=== PATIENT | female | born 1980 | race Caucasian/White ===

== ENCOUNTER 2016-11-15 18:06 | Emergency (ER) | payer MEDICAID ==
[~2016-11-15 18:06] MED LIST: ?BP MED; ACHYD1T PO; ALBU0.632 IH; ALBU8.5H2 IH; AMLO5TAB4 PO; AZIT-21 PO; BENZ100C18 PO; BUTA1TAB46 PO; CEPH-38 PO; CIPR-225 PO; DCS100C PO; FERR240T9 PO; HYDR-3729 PO; HYDR-707 PO; HYDR1TAB PO; INHALER; Ibuprofen PO; LEVO500T69 PO; NITR100C3 PO; ONDA-42 SL; PEDI1TAB35 PO; PRED10TA PO; PREN1COM11 PO; SERT50TA2 PO; SRTR100T PO; TRM50T PO
--- OUTSIDE RECORDS SUMMARY | 2016-11-15 18:12 | XMS REPORT | Continuity of Care Document ---
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 05/06/14 9:38pm Organ Donor Yes 05/06/14 9:38pm Resuscitation Status Full Code 05/06/14 9:38pm Resuscitation Status Full Code 05/06/14 9:58pm Problems Medical Problems Problem Onset Date Status DEMISE PER ULTRASOUND REPORT Unknown Active Nausea Unknown Active Medications Medication Dose Route Sig Days/Qty Instructions Order Date Discontinued Date Status Sertraline HCl 200 Mg PO DAILY 06/26/11 06/19/13 Discontinued [Inhaler] NEEDED 11/29/12 11/29/12 Discontinued [?Bp Med] DAILY 01/03/13 06/19/13 Discontinued Acetaminophen/Hydrocodone Bitart 1 - 2 Each PO Q 4 - 6 HR PRN 20 Qty 06/19/13 Discontinued Levofloxacin 1 Each PO DAILY 10 Qty FOR INFECTION 06/19/13 12/03/13 Discontinued Tramadol HCl 50 Mg PO Q4-6HOURS PRN 20 Qty 06/19/13 12/03/13 Discontinued Cmb#95/Iron/Fa/Dha 1 Each PO DAILY 12/03/13 05/07/14 Discontinued Albuterol 1 Puff IH EVERY 4HRS 1 PUFFS 12/03/13 Active Ondansetron Hcl 4 Mg SL EVERY 4HRS 5 Qty 12/03/13 05/07/14 Discontinued Pediatric Multivit Comb. No.49 1 Each PO DAILY 05/07/14 Active Ferrous Gluconate 1 Tab PO DAILY 05/07/14 Active Nitrofurantoin Macrocrystals 1 Tab PO TWICE A DAY 7 Days Clcr <60 mL/ minute: Contraindicated 05/07/14 Active Social History Social History Problem Response Recorded Date/Time Alcohol Use Occasionally Uses 05/07/2014 2:37am Recreational Drug Use N DENIES 05/07/2014 2:37am Recent Foreign Travel No 05/07/2014 2:37am Recent Infectious Disease Exposure No 05/07/2014 2:37am Hospitalization with Isolation Denies 05/07/2014 10:12am Sexually Transmitted Disease No 05/07/2014 2:37am HIV/AIDS No 05/07/2014 2:37am Smoking Status Current Everyday Smoker 05/06/2014 9:37pm Do you dip or chew tobacco? No 05/06/2014 9:37pm Query Response Start Date Stop Date Smoking Status Current Everyday Smoker Hospital Discharge Instructions No hospital discharge instructions. Plan of Care Discharge Date 05/07/14 9:30am Disposition 30 STILL A PATIENT Instructions/Education Provided OB OUTPATIENT DISCHARGE Forms Provided Follow-Up Appts. [facility]/OP Prescriptions See Medications Section Functional Status No functional status results. Allergies, Adverse Reactions, Alerts Allergen Type Severity Reaction Status Last Updated Procaine HCl Allergy Active 06/26/11 Penicillins ([id number]) Allergy Active 06/26/11 Codeine Allergy Active 06/26/11 Immunizations Name Given Type Date of Influenza Vaccine 07/18/13 Historical Hepatitis A No Historical Hepatitis B No Historical Tetanus Booster (TDap) Unknown Historical Vital Signs Acute Vital Signs Vital Response Date/Time Temperature (Fahrenheit) 96.7 degrees F (97.6 - 99.5) Temperature (Calculated Celsius) 35.13764 degrees C (36.4 - 37.5) Temperature Source Tympanic Pulse Rate (adult) 94 bpm (60 - 90) Respiratory Rate 18 bpm (12 - 24) Blood Pressure 103/62 mm Hg Pain Pain Intensity 5 Height (Feet) 5 feet Height (Inches) 1.00 inches Height (Calculated Centimeters) 154.651332 cm Weight (Pounds) 175 pounds Weight (Calculated Grams) 17110.666 gm Weight (Calculated Kilograms) 79.103327 kilograms Calculated BMI 33.06 Results Test Source Date Result Interp. Ref. Range Comments Alanine Aminotransferase (ALT/SGPT) December 03, 2013 9:00pm 30 U/L N 30- 65 Albumin December 03, 2013 9:00pm 3.3 G/DL L 3.4-5.0 Alkaline Phosphatase December 03, 2013 9:00pm 73 U/L N 50-136 Amylase Level June 19, 2013 8:39pm 35 U/L N 25-115 Anisocytosis December 03, 2013 9:00pm SLIGHT - Aspartate Amino Transf (AST/SGOT) December 03, 2013 9:00pm 9 U/L L 15-37 BUN/Creatinine Ratio December 03, 2013 9:00pm 16 - Band Neutrophils December 03, 2013 9:00pm 1 % - Basophils # (Auto) December 03, 2013 9:00pm 0.0 10^3/uL N 0.0-0.1 Basophils % (Manual) December 03, 2013 9:00pm 0 % - Basophils (%) (Auto) December 03, 2013 9:00pm 0 % N 0-10 Blood Urea Nitrogen December 03, 2013 9:00pm 13 MG/DL N 7-18 C-Reactive Protein November 29, 2012 12:52am < 0.2 MG/DL L 0.2-0.9 Calcium Level December 03, 2013 9:00pm 9.2 MG/DL N 8.5-10.1 Carbon Dioxide Level December 03, 2013 9:00pm 26 MMOL/L N 21-32 Chloride Level December 03, 2013 9:00pm 103 MMOL/L N 101-110 Creatinine December 03, 2013 9:00pm 0.8 MG/DL N 0.6-1.3 Eosinophils # (Auto) December 03, 2013 9:00pm 0.5 10^3/uL H 0.0-0.3 Eosinophils % (Manual) December 03, 2013 9:00pm 3 % - Eosinophils (%) (Auto) December 03, 2013 9:00pm 4 % N 0-10 Erythrocyte Sedimentation Rate November 29, 2012 12:52am 1 MM/HR N 0-20 Glucose Level December 03, 2013 9:00pm 84 MG/DL N 74-106 Hematocrit December 03, 2013 9:00pm 37 % N 35-52 Hemoglobin December 03, 2013 9:00pm 13.0 G/DL N 11.5-16.0 Human Chorionic Gonadotropin, Quant November 16, 2013 12:07am 92155 MIU/ ML H -6 HCG QUANT REFERENCE RANGES: MALE: <0.5 - 2.67 NON- FEMALE: <0.5 - 2.90 FEMALE: 0.2 - 1 WK: 5 - 50 1 - 2 WK: 50 - 500 2 - 3 WK: 100 - 5,000 3 - 4 WK: 500 - 10,000 4 - 5 WK: 1,000 - 50,000 5 - 6 WK: 10,000 - 100,000 6 - 8 WK: 15,000 - 200,000 8 - 12 WK: 10,000 - 100,000 Lipase June 19, 2013 8:39pm 118 U/L N 73-393 Lymphocytes # (Auto) December 03, 2013 9:00pm 4.8 X 10^3 H 1.0-4.0 Lymphocytes % (Manual) December 03, 2013 9:00pm 24 % - Lymphocytes (%) (Auto) December 03, 2013 9:00pm 33 % N 12-44 Mean Corpuscular Hemoglobin December 03, 2013 9:00pm 31 PG N 25-34 Mean Corpuscular Hemoglobin Concent December 03, 2013 9:00pm 35 G/DL N 32- 36 Mean Corpuscular Volume December 03, 2013 9:00pm 90 FL N 80-99 Mean Platelet Volume December 03, 2013 9:00pm 12.0 FL H 7.4-10.4 Monocytes # (Auto) December 03, 2013 9:00pm 1.5 X 10^3 H 0.0-1.0 Monocytes % (Manual) December 03, 2013 9:00pm 2 % - Monocytes (%) (Auto) December 03, 2013 9:00pm 11 % N 0-12 Neutrophils # (Auto) December 03, 2013 9:00pm 7.6 X 10^3 N 1.8-7.8 Neutrophils % (Manual) December 03, 2013 9:00pm 59 % - Neutrophils (%) (Auto) December 03, 2013 9:00pm 53 % N 42-75 Platelet Count December 03, 2013 9:00pm 248 10^3/uL N 130-400 Potassium Level December 03, 2013 9:00pm 3.8 MMOL/L N 3.6-5.0 Reactive Lymphocytes December 03, 2013 9:00pm 11 % - Red Blood Count December 03, 2013 9:00pm 4.14 10^6/uL L 4.35-5.85 Red Cell Distribution Width December 03, 2013 9:00pm 13.0 % N 10.0-14.5 Sodium Level December 03, 2013 9:00pm 138 MMOL/L N 135-145 Stomatocytes June 19, 2013 8:39pm SLIGHT - Total Bilirubin December 03, 2013 9:00pm 0.1 MG/DL N 0.0-1.0 Total Protein December 03, 2013 9:00pm 6.8 G/DL N 6.4-8.2 Ur Tricyclic Antidepressants Screen December 03, 2013 9:00pm NEGATIVE - Urine Amphetamines Screen December 03, 2013 9:00pm NEGATIVE - Urine Bacteria December 03, 2013 9:00pm TRACE /HPF - Has specimen been collected/obtained? YSpecimen Description CLEAN CATCH Urine Barbiturates Screen December 03, 2013 9:00pm NEGATIVE - Urine Benzodiazepines Screen December 03, 2013 9:00pm NEGATIVE - Urine Bilirubin December 03, 2013 9:00pm NEGATIVE - Has specimen been collected/obtained? YSpecimen Description CLEAN CATCH Urine Casts December 03, 2013 9:00pm NONE /LPF - Has specimen been collected/obtained? YSpecimen Description CLEAN CATCH Urine Clarity December 03, 2013 9:00pm SLIGHTLY CLOUDY - Has specimen been collected/obtained? YSpecimen Description CLEAN CATCH Urine Cocaine Screen December 03, 2013 9:00pm NEGATIVE - Urine Color December 03, 2013 9:00pm YELLOW - Has specimen been collected/obtained? YSpecimen Description CLEAN CATCH Urine Crystals December 03, 2013 9:00pm NONE /LPF - Has specimen been collected/obtained? YSpecimen Description CLEAN CATCH Urine Culture Indicated December 03, 2013 9:00pm NO - Has specimen been collected/obtained? YSpecimen Description CLEAN CATCH Urine Glucose (UA) December 03, 2013 9:00pm NEGATIVE - Has specimen been collected/obtained? YSpecimen Description CLEAN CATCH Urine Ketones December 03, 2013 9:00pm NEGATIVE - Has specimen been collected/obtained? YSpecimen Description CLEAN CATCH Urine Leukocyte Esterase December 03, 2013 9:00pm NEGATIVE - Has specimen been collected/obtained? YSpecimen Description CLEAN CATCH Urine Methamphetamines Screen December 03, 2013 9:00pm NEGATIVE - Urine Mucus December 03, 2013 9:00pm NEGATIVE /LPF - Has specimen been collected/obtained? YSpecimen Description CLEAN CATCH Urine Nitrite December 03, 2013 9:00pm NEGATIVE - Has specimen been collected/obtained? YSpecimen Description CLEAN CATCH Urine Opiates Screen December 03, 2013 9:00pm NEGATIVE - Urine Phencyclidine Screen December 03, 2013 9:00pm NEGATIVE - Urine Propoxyphene Screen December 03, 2013 9:00pm NEGATIVE - Urine Protein December 03, 2013 9:00pm NEGATIVE - Has specimen been collected/obtained? YSpecimen Description CLEAN CATCH Urine RBC December 03, 2013 9:00pm NONE /HPF - Has specimen been collected/obtained? YSpecimen Description CLEAN CATCH Urine Specific [place] December 03, 2013 9:00pm 1.020 - Has specimen been collected/obtained? YSpecimen Description CLEAN CATCH Urine Squamous Epithelial Cells December 03, 2013 9:00pm 10-25 /HPF H - MICROSCOPIC EXAM BY Reachable Urine Urobilinogen December 03, 2013 9:00pm NORMAL MG/DL - Has specimen been collected/obtained? YSpecimen Description CLEAN CATCH Urine WBC December 03, 2013 9:00pm 0-2 /HPF - Has specimen been collected/obtained? YSpecimen Description CLEAN CATCH Urine pH December 03, 2013 9:00pm 6 - Has specimen been collected/ obtained? YSpecimen Description CLEAN CATCH White Blood Count December 03, 2013 9:00pm 14.4 10^3/uL H 4.3-11.0 Estimat Glomerular Filtration Rate December 03, 2013 9:00pm > 60 - GFR INTERPRETIVE DATA UNITS FOR ESTIMATED GFR (eGFR): mL/min/1.73 M2 REFERENCE RANGE FOR ESTIMATED GFR (eGFR) eGFR NORMAL eGFR >60 MODERATELY DECREASED eGFR 30-59 SEVERLY DECREASED eGFR 15-29 KIDNEY FAILURE <15 (OR DIALYSIS) Urine Oxycodone Screen December 03, 2013 9:00pm NEGATIVE - Blood Morphology Comment November 16, 2013 12:07am NORMAL - Urine Methadone Screen December 03, 2013 9:00pm NEGATIVE - Urine Cannabinoids Screen December 03, 2013 9:00pm NEGATIVE - Urine Buprenorphine December 03, 2013 9:00pm NEGATIVE - Urine RBC (Auto) December 03, 2013 9:00pm NEGATIVE - Has specimen been collected/obtained? YSpecimen Description CLEAN CATCH Urine Culture Urine-Clean Catch June 19, 2013 8:30pm Procedures No known history of procedures. Encounters Encounter Location Date/Time Discharged Inpatient Via [facility] 05/07/14 12:00am
== END 2016-11-15 19:18 | disposition left against medical advice (07) ==
LOC: EDUNIT# 18:06 → ER 18:07
DX: M79.603 Pain in arm, unspecified (principal); Z53.21 Procedure and treatment not carried out due to patient leaving prior to being seen by health care provider

== ENCOUNTER 2018-07-31 13:58 | Emergency (ER) | payer MEDICAID ==
[~2018-07-31] VITALS: Ht 165.1 cm; Wt 79.4 kg
[2018-07-31] MEDS ORDERED: ASPIRIN 81 MG CHEW (CHILDREN'S ASA) PO ONE (14:15)
[2018-07-31] MEDS ORDERED: amLODIPine 5 MG (NORVASC) TAB PO ONE (14:15)
[2018-07-31] MEDS ORDERED: meTOprolol 5 MG/5 ML (LOPRESSOR) VIAL IV ONE (14:15)
[2018-07-31] MEDS ORDERED: DULO60CA58 PO (14:27)
[2018-07-31 14:37] LABS: BASOPHILS % (AUTO) 0 % (0-10); EOSINOPHILS # (AUTO) 0.3 10^3/uL (0.0-0.3); EOSINOPHILS % (AUTO) 2 % (0-10); HEMATOCRIT 43 % (35-52); HEMOGLOBIN 14.3 G/DL (11.5-16.0); LYMPHOCYTES # (AUTO) 3.9 X 10^3 (1.0-4.0); LYMPHOCYTES % (AUTO) 28 % (12-44); MEAN CORPUSCULAR HEMOGLOBIN 29 PG (25-34); MEAN CORPUSCULAR HGB CONC 33 G/DL (32-36); MEAN CORPUSCULAR VOLUME 87 FL (80-99); MEAN PLATELET VOLUME 12.6 FL (7.4-10.4); MONOCYTES % (AUTO) 7 % (0-12); NEUTROPHILS # (AUTO) 8.9 X 10^3 (1.8-7.8); NEUTROPHILS % (AUTO) 63 % (42-75); PLATELET COUNT 272 10^3/uL (130-400); RED BLOOD COUNT 4.96 10^6/uL (4.35-5.85); RED CELL DISTRIBUTION WIDTH 16.3 % (10.0-14.5)
[2018-07-31 14:41] LABS: PROTHROMBIN TIME PATIENT 12.6 SEC (12.2-14.7)
[2018-07-31] MEDS ORDERED: LORazepam INJ 2 MG/ML (ATIVAN) VIAL IVP ONE (14:45)
--- NOTE | 2018-07-31 14:45 | ED General ---
General Chief Complaint: Neurological Problems Stated Complaint: ELEV BP/BLURRY VISION/LEFT ARM NUMBNESS Source of Information: Patient Exam Limitations: No Limitations History of Present Illness Date Seen by Provider: Jul 31, 2018 Time Seen by Provider: 14:05 Initial Comments Here with report of elevated blood pressure today. She is under lots of stress due to family dynamics and started feeling lightheaded and had some blurred vision. She also felt numb in her left arm. Does have history of high blood pressure that she takes medications for. She took her medicine at 3 a.m., which was her typical time. She went to her doctor's office because she was not feeling well and was found to have quite high blood pressure. She then came here for further evaluation. Denies persistent chest pain, weakness, breathing problems or vomiting. Timing/Duration: 1-3 Hours Severity: Moderate Modifying Factors: improves with Rest Associated Systoms: Chest Pain; No Cough, No Fever/Chills, No Nausea/Vomiting, No Shortness of Air, No Weakness Allergies and Home Medications Allergies Coded Allergies: tramadol (Verified Allergy, Intermediate, RASH, 10/18/15) Penicillins (Unverified Allergy, Unknown, 06/22/14) as a child, pt. verbalizes she can take Z-Curly, etc Procaine HCl (Unverified Allergy, Unknown, 06/22/14) codeine (Unverified Allergy, Unknown, 10/18/15) HAD CHILD Home Medications Albuterol 8.5 Gm Hfa.aer.ad, 1-2 PUFF IH Q4H PRN for SHORTNESS OF BREATH, ( Reported) 1 PUFFS Amlodipine Besylate 5 Mg Tablet, 5 MG PO DAILY, (Reported) Patient Home Medication List Home Medication List Reviewed: Yes Review of Systems Review of Systems Constitutional: see HPI; No chills, No fever EENTM: see HPI, blurred vision; No double vision Respiratory: no symptoms reported Cardiovascular: see HPI; No palpitations, No syncope Gastrointestinal: No abdominal pain, No nausea, No vomiting Genitourinary: no symptoms reported Musculoskeletal: see HPI Skin: no symptoms reported Psychiatric/Neurological: See HPI, Numbness; Denies Weakness Hematologic/Lymphatic: No Symptoms Reported All Other Systems Reviewed Negative Unless Noted: Yes Past [place]-[id number]-Cqgzvb Hx Past Med/Social Hx: Reviewed Nursing Past Med/Soc Hx Patient Social History Alcohol Use: Denies Use Recreational Drug Use: No Smoking Status: Current Everyday Smoker Immunizations Up To Date Tetanus Booster (TDap): Unknown PED Vaccines UTD: No Date of Pneumonia Vaccine: Jun 01, 2014 Date of Influenza Vaccine: Jul 18, 2013 Seasonal Allergies Seasonal Allergies: No Past Medical History Surgeries: Yes (METAL PLATE RIGHT ARM) Respiratory: Yes Asthma Cardiac: Yes Hypertension Neurological: Yes Reproductive Disorders: No Female Reproductive Disorders: Ovarian Cyst Sexually Transmitted Disease: No HIV/AIDS: No Gastrointestinal: Yes Gall Bladder Disease Musculoskeletal: No Endocrine: No Loss of Vision: Bilateral Hearing Impairment: Denies Cancer: No Psychosocial: Yes Depression Integumentary: No Blood Disorders: No Adverse Reaction/Blood Tranf: No Family Medical History Reviewed Nursing Family Hx Cardiovascular disease MATERNAL GRANDMOTHER PATERNAL GRANDMOTHER Diabetes mellitus MATERNAL GRANDMOTHER FH: cancer MATERNAL GRANDMOTHER Hypertension MATERNAL GRANDMOTHER MATERNAL GRANDFATHER PATERNAL GRANDMOTHER PATERNAL GRANDFATHER Physical Exam Vital Signs Vital Signs - First Documented 07/31/18 13:58 Temp 97.6 Pulse 106 Resp 18 B/P (MAP) 204/142 (162) Pulse Ox 100 Capillary Refill : Height, Weight, BMI Height: 5'0" Weight: 160lbs. oz. 72.299957sz; 31.21 BMI Method:Stated General Appearance: No Apparent Distress, WD/WN HEENT: PERRL/EOMI, Pharynx Normal Neck: Non Tender, Supple Respiratory: Lungs Clear, Normal Breath Sounds Cardiovascular: Regular Rate, Rhythm, No Murmur Gastrointestinal: Non Tender, Soft Back: Normal Inspection, No CVA Tenderness, No Vertebral Tenderness Extremity: Normal Range of Motion, Non Tender Neurologic/Psychiatric: Alert, Oriented x3 Skin: Normal Color, Warm/Dry Progress/Results/Core Measures Suspected Sepsis SIRS Temperature: Pulse: Respiratory Rate: Laboratory Tests 07/31/18 14:04: White Blood Count 14.0H Blood Pressure / Mean: Laboratory Tests 07/31/18 14:04: Creatinine 0.80, INR Comment 1.0, Platelet Count 272, Total Bilirubin 0.3 Results/Orders Lab Results Laboratory Tests Test 07/31/18 14:04 Range/Units White Blood Count 14.0 H 4.3-11.0 10^3/uL Red Blood Count 4.96 4.35-5.85 10^6/uL Hemoglobin 14.3 11.5-16.0 G/DL Hematocrit 43 35-52 % Mean Corpuscular Volume 87 80-99 FL Mean Corpuscular Hemoglobin 29 25-34 PG Mean Corpuscular Hemoglobin Concent 33 32-36 G/DL Red Cell Distribution Width 16.3 H 10.0-14.5 % Platelet Count 272 130-400 10^3/uL Mean Platelet Volume 12.6 H 7.4-10.4 FL Neutrophils (%) (Auto) 63 42-75 % Lymphocytes (%) (Auto) 28 12-44 % Monocytes (%) (Auto) 7 0-12 % Eosinophils (%) (Auto) 2 0-10 % Basophils (%) (Auto) 0 0-10 % Neutrophils # (Auto) 8.9 H 1.8-7.8 X 10^3 Lymphocytes # (Auto) 3.9 1.0-4.0 X 10^3 Monocytes # (Auto) 1.0 0.0-1.0 X 10^3 Eosinophils # (Auto) 0.3 0.0-0.3 10^3/uL Basophils # (Auto) 0.0 0.0-0.1 10^3/uL Prothrombin Time 12.6 12.2-14.7 SEC INR Comment 1.0 0.8-1.4 Activated Partial Thromboplast Time 29 24-35 SEC Sodium Level 141 135-145 MMOL/L Potassium Level 3.8 3.6-5.0 MMOL/L Chloride Level 109 H 98-107 MMOL/L Carbon Dioxide Level 24 21-32 MMOL/L Anion Gap 8 5-14 MMOL/L Blood Urea Nitrogen 11 7-18 MG/DL Creatinine 0.80 0.60-1.30 MG/DL Estimat Glomerular Filtration Rate > 60 BUN/Creatinine Ratio 14 Glucose Level 93 70-105 MG/DL Calcium Level 9.7 8.5-10.1 MG/DL Corrected Calcium 9.3 8.5-10.1 MG/DL Magnesium Level 2.2 1.8-2.4 MG/DL Total Bilirubin 0.3 0.1-1.0 MG/DL Aspartate Amino Transf (AST/SGOT) 13 5-34 U/L Alanine Aminotransferase (ALT/SGPT) 17 0-55 U/L Alkaline Phosphatase 74 40-136 U/L Myoglobin 35.6 10.0-92.0 NG/ML Troponin I < 0.30 <0.30 NG/ML Total Protein 7.2 6.4-8.2 GM/DL Albumin 4.5 3.2-4.5 GM/DL My Orders Orders - KAYLIE COTTER MD Cbc With Automated Diff (07/31/18 14:08) Magnesium (07/31/18 14:08) Chest 1 View, Ap/Pa Only (07/31/18 14:08) Ekg Tracing (07/31/18 14:08) Cardiac Profile 1 (07/31/18 14:08) Comprehensive Metabolic Panel (07/31/18 14:08) Myoglobin Serum (07/31/18 14:08) Protime With Inr (07/31/18 14:08) Partial Thromboplastin Time (07/31/18 14:08) Monitor-Rhythm Ecg Trace Only (07/31/18 14:08) Lipid Panel (08/01/18 06:00) Aspirin Chewable Tablet (Baby Aspirin Ch (07/31/18 14:15) Saline Lock/Iv-Start (07/31/18 14:08) Metoprolol Tartrate Injection (Lopressor (07/31/18 14:15) Metoprolol Succinate (Xl) Tab (Toprol Xl (07/31/18 14:15) Amlodipine Tablet (Norvasc Tablet) (07/31/18 14:15) Lorazepam Injection (Ativan Injection) (07/31/18 14:45) Manual Differential (07/31/18 14:04) Medications Given in ED Current Medications Medications Dose Ordered Sig/Saúl Route Start Time Stop Time Status Last Admin Dose Admin Amlodipine Besylate 5 mg ONCE ONCE PO 07/31/18 14:15 07/31/18 14:16 DC 07/31/18 14:15 5 MG Aspirin 324 mg ONCE ONCE PO 07/31/18 14:15 07/31/18 14:16 DC 07/31/18 14:15 324 MG Lorazepam 0.5 mg ONCE ONCE IVP 07/31/18 14:45 07/31/18 14:46 DC 07/31/18 14:47 0.5 MG Metoprolol Succinate 25 mg ONCE ONCE PO 07/31/18 14:15 07/31/18 14:16 DC 07/31/18 14:15 25 MG Metoprolol Tartrate 5 mg ONCE ONCE IV 07/31/18 14:15 07/31/18 14:16 DC 07/31/18 14:15 5 MG Vital Signs/I&O 07/31/18 13:58 Temp 97.6 Pulse 106 Resp 18 B/P (MAP) 204/142 (162) Pulse Ox 100 Capillary Refill : Progress Note : Progress Note Seen and evaluated. IV, labs, EKG and chest x-ray ordered. ASA 324 mg by mouth ordered. Lopressor 5 mg IV and Toprol-XL 25 mg by mouth. Amlodipine 5 mg by mouth ordered. Monitor patient. 1440: Patient still very anxious. Ativan 0.5 mg IV ordered for anxiousness. Monitor patient. 1550: Patient overall doing better and blood pressure in the 140s systolic. It does range around depending on which family members are around her. Patient will be discharged home. I did discuss with her about blood pressure control and follow -up with her doctor. We will initiate outpatient metoprolol twice a day and have her continue her amlodipine at current dosing with follow-up with her doctor in a few days. Discharged home with return precautions. Patient verbalize understanding instructions and agreement with plan. ECG Initial ECG Impression Date: Jul 31, 2018 Initial ECG Impression Time: 14:12 Initial ECG Rate: 89 Initial ECG Rhythm: Normal Sinus Initial ECG Comparisson: Unchanged Comment Sinus rhythm with normal axis. No evidence of ST elevation [place]. Similar to previous of 26 June 2011. Interpreted by me. Diagnostic Imaging Diagonstic Imaging: Xray Plain Films/CT/US/NM/MRI: chest Comments VIA [facility], [facility]. [place], [place] NAME: DESTINI STEELE [facility] REC#: [id number] PT STATUS: REG ER : 1980 PHYSICIAN: KAYLIE COTTER MD ADMIT DATE: 07/31/18/ER Draft Date of Exam:07/31/18 CHEST 1 VIEW, AP/PA ONLY INDICATION: Blurred left eye as well as loss of feeling in the left arm. TIME OF EXAMINATION: 02:31 p.m. COMPARISON: Correlation is made with prior chest radiograph from 06/19/2013. FINDINGS: Right hemidiaphragm is slightly elevated with some mild atelectasis in the right base. Otherwise the lungs are clear. No effusion or pneumothorax is seen. IMPRESSION: Mild right basilar subsegmental atelectasis. Dictated on workstation # [id number] Dict: 07/31/18 1437 Trans: 07/31/18 1442 [facility] [id number] Interpreted by: MARIETTA BACH MD Electronically signed by: Departure Impression Primary Impression: Labile essential hypertension Disposition: HOME, SELF-CARE Condition: Improved Departure-Patient Inst. Decision time for Depature: 15:57 Referrals: TRA SOTO DO (PCP/Family) Primary Care Physician Patient Instructions: High Blood Pressure (DC) Add. Discharge Instructions: All discharge instructions reviewed with patient and/or family. Voiced understanding. Take your medications as directed. Start new medication as prescribed. Follow- up with your Dr. in a few days for recheck. Try to avoid people or situations that increased her anxiety her blood pressure to the best of your ability. Return for worse pain, fever, vomiting, weakness, breathing problems or other concerns as needed. Scripts Metoprolol Tartrate (Metoprolol Tartrate) 25 Mg Tablet 25 MG PO BID, #30 TAB 0 Refills Prov: KAYLIE COTTER MD 07/31/18 KAYLIE COTTER MD Jul 31, 2018 14:45
[2018-07-31 14:48] LABS: ALANINE AMINOTRANSFERASE 17 U/L (0-55); ALBUMIN 4.5 GM/DL (3.2-4.5); ALKALINE PHOSPHATASE 74 U/L (40-136); BILIRUBIN,TOTAL 0.3 MG/DL (0.1-1.0); BUN/CREATININE RATIO 14; CALCIUM 9.7 MG/DL (8.5-10.1); CARBON DIOXIDE 24 MMOL/L (21-32); CHLORIDE 109 MMOL/L (98-107); GFR ESTIMATED > 60; GLUCOSE 93 MG/DL (70-105); MAGNESIUM 2.2 MG/DL (1.8-2.4); POTASSIUM 3.8 MMOL/L (3.6-5.0); SODIUM 141 MMOL/L (135-145); TOTAL PROTEIN 7.2 GM/DL (6.4-8.2)
[2018-07-31 14:55] LABS: MYOGLOBIN SERUM 35.6 NG/ML (10.0-92.0)
[2018-07-31 15:55] LABS: BAND NEUTROPHILS 1 %; BASOPHILS % (MANUAL) 0 %; EOSINOPHILS % (MANUAL) 7 %; LYMPHOCYTES % (MANUAL) 27 %; MONOCYTES % (MANUAL) 3 %; NEUTROPHILS % (MANUAL) 62 %; RBC MORPH NORMAL
[2018-07-31] MEDS ORDERED: METO-333 PO (15:59)
[2018-07-31 16:03] VITALS: BP 128/82
== END 2018-07-31 16:03 | disposition home or self-care (01) ==
LOC: EDUNIT# 13:58 → ER 14:00
DX: I10 Essential (primary) hypertension (principal); J45.909 Unspecified asthma, uncomplicated; F32.9 Major depressive disorder, single episode, unspecified; F17.200 Nicotine dependence, unspecified, uncomplicated; Z88.6 Allergy status to analgesic agent; Z82.49 Family history of ischemic heart disease and other diseases of the circulatory system; Z87.448 Personal history of other diseases of urinary system; Z88.0 Allergy status to penicillin; Z88.4 Allergy status to anesthetic agent; Z88.5 Allergy status to narcotic agent; Z79.51 Long term (current) use of inhaled steroids
CPT/HCPCS: 36415; 71045; 80053; 83735; 83874; 84484; 85007; 85027; 85610; 85730; 93005; 93041; 96374; 96375

== ENCOUNTER 2018-08-05 12:39 | Observation (INO) | payer MEDICAID ==
[~2018-08-05] VITALS: Ht 162.6 cm; Wt 68.0 kg
[~2018-08-05 12:39] MED LIST changes: +DULO60CA58 PO; +METO-333 PO
[2018-08-05 13:30] VITALS: BP_SYST 123; BP_SYST 132; BP_SYST 144; BP_DIAS 103; BP_DIAS 108; BP_DIAS 87
[2018-08-05 13:33] LABS: BILIRUBIN,URINE NEGATIVE (NEGATIVE); CLARITY,URINE CLEAR; COLOR,URINE YELLOW; GLUCOSE, URINE (UA) NEGATIVE (NEGATIVE); KETONES,URINE 1+ (NEGATIVE); LEUKOCYTE ESTERASE ,URINE 1+ (NEGATIVE); NITRITE,URINE NEGATIVE (NEGATIVE); PH,URINE 5 (5-9); PROTEIN,URINE 2+ (NEGATIVE); UROBILINOGEN,URINE 1 MG/DL (NORMAL)
--- NOTE | 2018-08-05 13:41 | ED General ---
General Chief Complaint: Cardiac/General Problems Stated Complaint: PASSED OUT;HIGH BP Nursing Triage Note: PT PRESENTS TO ER WITH COMPLAINT OF HYPERTENSION AND PASSING OUT. STATES SHE HAS BEEN HAVING THIS ISSUE FOR THE LAST WEEK. WAS SEEN IN ER ON 07/31. AND SAW DR ON 08/02. STATES SHE PASSED OUT AT [facility] TODAY. Nursing Sepsis Screen: No Definite Risk Source of Information: Patient, Old Records Exam Limitations: No Limitations History of Present Illness Date Seen by Provider: Aug 05, 2018 Time Seen by Provider: 13:10 Initial Comments This 37 showed woman presents to the emergency room after having a syncopal episode at [facility]. Patient has also had some intermittent chest tightening and sharp pains. She had checked her blood pressure there because she has had some hypertensive issues recently. She has been prescribed antihypertensive medications and had some changes made to those medications by her primary care provider, Leonie Simon. She is presently taking amlodipine 5 mg daily and metoprolol 25 mg twice a day for blood pressure. She takes Cymbalta 120 mg daily. She recently had BuSpar 10 mg 3 times a day added on August 01 as well. After checking her blood pressure at [facility] she began walking around the store. She was feeling intermittently dizzy for a few minutes before she suddenly lost consciousness and collapsed. She reports loss of consciousness for only a few brief seconds before regaining alertness. She also had an incident over the weekend in which she had complete syncope. She did strike her head during that weekend episode and has had headaches since then. She was in the emergency room last week where she was treated for hypertension. Notes from that visit were reviewed. She denies any drug or alcohol use. She does smoke. She denies as she has had a tubal ligation. She has been experiencing some intermittent left arm numbness since her visit last week. Patient states she has had a history of syncope with a in the past as well. Allergies and Home Medications Allergies Coded Allergies: tramadol (Verified Allergy, Intermediate, RASH, 10/18/15) Penicillins (Unverified Allergy, Unknown, 06/22/14) as a child, pt. verbalizes she can take Z-Curly, etc Procaine HCl (Unverified Allergy, Unknown, 06/22/14) codeine (Unverified Allergy, Unknown, 10/18/15) HAD CHILD Home Medications Albuterol 8.5 Gm Hfa.aer.ad, 1-2 PUFF IH Q4H PRN for SHORTNESS OF BREATH, ( Reported) 1 PUFFS Amlodipine Besylate 5 Mg Tablet, 5 MG PO DAILY, (Reported) Metoprolol Tartrate 25 Mg Tablet, 25 MG PO BID Prescribed by: KAYLIE COTTER on 07/31/18 1789 Patient Home Medication List Home Medication List Reviewed: Yes Review of Systems Review of Systems Constitutional: no symptoms reported EENTM: no symptoms reported Respiratory: no symptoms reported Cardiovascular: see HPI Gastrointestinal: no symptoms reported Genitourinary: no symptoms reported Musculoskeletal: see HPI Skin: no symptoms reported Psychiatric/Neurological: See HPI Hematologic/Lymphatic: No Symptoms Reported Immunological/Allergic: no symptoms reported Past Cdspsza-Hwpuoi-Xlpnhf Hx Past Med/Social Hx: Reviewed and Corrections made Patient Social History Alcohol Use: Denies Use Recreational Drug Use: No Recent Foreign Travel: No Contact w/Someone Who Travel: No Recent Infectious Disease Expo: No Immunizations Up To Date Tetanus Booster (TDap): Unknown PED Vaccines UTD: No Date of Pneumonia Vaccine: Jun 01, 2014 Date of Influenza Vaccine: Jul 18, 2013 Seasonal Allergies Seasonal Allergies: No Past Medical History Surgeries: Yes (METAL PLATE RIGHT ARM) Respiratory: Yes Asthma Cardiac: Yes Hypertension, Syncope Neurological: Yes Reproductive Disorders: No Female Reproductive Disorders: Ovarian Cyst Sexually Transmitted Disease: No HIV/AIDS: No Gastrointestinal: Yes Gall Bladder Disease Musculoskeletal: No Endocrine: No Loss of Vision: Bilateral Hearing Impairment: Denies Cancer: No Psychosocial: Yes Depression Integumentary: No Blood Disorders: No Adverse Reaction/Blood Tranf: No Family Medical History Reviewed Nursing Family Hx Cardiovascular disease MATERNAL GRANDMOTHER PATERNAL GRANDMOTHER Diabetes mellitus MATERNAL GRANDMOTHER FH: cancer MATERNAL GRANDMOTHER Hypertension MATERNAL GRANDMOTHER MATERNAL GRANDFATHER PATERNAL GRANDMOTHER PATERNAL GRANDFATHER Physical Exam Vital Signs Vital Signs - First Documented 08/05/18 12:56 Temp 98.0 Pulse 101 Resp 20 B/P (MAP) 149/102 (118) Pulse Ox 97 O2 Delivery Room Air Capillary Refill : Less Than 3 Seconds Height, Weight, BMI Height: 5'4.00" Weight: 150lbs. oz. [id number]; 31.21 BMI Method:Stated General Appearance: No Apparent Distress, WD/WN HEENT: PERRL/EOMI, Normal ENT Inspection, Pharynx Normal Neck: Normal Inspection Respiratory: Lungs Clear, Normal Breath Sounds, No Accessory Muscle Use, No Respiratory Distress Cardiovascular: Regular Rate, Rhythm, No Edema, No Murmur Gastrointestinal: Normal Bowel Sounds, Non Tender, Soft Extremity: Normal Inspection, No Pedal Edema Neurologic/Psychiatric: Alert, Oriented x3, No Motor/Sensory Deficits, Normal Mood/Affect, wrapper selector II-XII Norm as Tested Skin: Normal Color, Warm/Dry Progress/Results/Core Measures Suspected Sepsis Recent Fever Within 48 Hours: No Infection Criteria Present: None New/Unexplained Altered Menta: No Sepsis Screen: No Definite Risk SIRS Temperature:98.0 Pulse: 101 Respiratory Rate: 20 Laboratory Tests 08/05/18 13:50: White Blood Count 11.3H Blood Pressure 149 /102 Mean: 118 Laboratory Tests 08/05/18 13:50: Creatinine 0.77, INR Comment 1.0, Platelet Count 280, Total Bilirubin 0.1 Results/Orders Lab Results Laboratory Tests Test 08/05/18 13:21 08/05/18 13:50 Range/Units Urine Color YELLOW Urine Clarity CLEAR Urine pH 5 5-9 Urine Specific [place] 1.020 1.016-1.022 Urine Protein 2+ H NEGATIVE Urine Glucose (UA) NEGATIVE NEGATIVE Urine Ketones 1+ H NEGATIVE Urine Nitrite NEGATIVE NEGATIVE Urine Bilirubin NEGATIVE NEGATIVE Urine Urobilinogen 1 NORMAL MG/DL Urine Leukocyte Esterase 1+ H NEGATIVE Urine RBC (Auto) NEGATIVE NEGATIVE Urine RBC NONE /HPF Urine WBC 2-5 /HPF Urine Squamous Epithelial Cells 10-25 H /HPF Urine Crystals NONE /LPF Urine Bacteria FEW H /HPF Urine Casts NONE /LPF Urine Mucus SMALL H /LPF Urine Culture Indicated NO Urine Opiates Screen NEGATIVE NEGATIVE Urine Oxycodone Screen NEGATIVE NEGATIVE Urine Methadone Screen NEGATIVE NEGATIVE Urine Propoxyphene Screen NEGATIVE NEGATIVE Urine Barbiturates Screen NEGATIVE NEGATIVE Ur Tricyclic Antidepressants Screen NEGATIVE NEGATIVE Urine Phencyclidine Screen NEGATIVE NEGATIVE Urine Amphetamines Screen NEGATIVE NEGATIVE Urine Methamphetamines Screen NEGATIVE NEGATIVE Urine Benzodiazepines Screen NEGATIVE NEGATIVE Urine Cocaine Screen NEGATIVE NEGATIVE Urine Cannabinoids Screen NEGATIVE NEGATIVE White Blood Count 11.3 H 4.3-11.0 10^3/uL Red Blood Count 4.75 4.35-5.85 10^6/uL Hemoglobin 13.5 11.5-16.0 G/DL Hematocrit 41 35-52 % Mean Corpuscular Volume 86 80-99 FL Mean Corpuscular Hemoglobin 28 25-34 PG Mean Corpuscular Hemoglobin Concent 33 32-36 G/DL Red Cell Distribution Width 16.1 H 10.0-14.5 % Platelet Count 280 130-400 10^3/uL Mean Platelet Volume 12.0 H 7.4-10.4 FL Neutrophils (%) (Auto) 53 42-75 % Lymphocytes (%) (Auto) 36 12-44 % Monocytes (%) (Auto) 8 0-12 % Eosinophils (%) (Auto) 4 0-10 % Basophils (%) (Auto) 0 0-10 % Neutrophils # (Auto) 6.0 1.8-7.8 X 10^3 Lymphocytes # (Auto) 4.0 1.0-4.0 X 10^3 Monocytes # (Auto) 0.9 0.0-1.0 X 10^3 Eosinophils # (Auto) 0.4 H 0.0-0.3 10^3/uL Basophils # (Auto) 0.0 0.0-0.1 10^3/uL Prothrombin Time 13.1 12.2-14.7 SEC INR Comment 1.0 0.8-1.4 Activated Partial Thromboplast Time 29 24-35 SEC D-Dimer 0.69 H 0.00-0.49 UG/ML Sodium Level 138 135-145 MMOL/L Potassium Level 3.7 3.6-5.0 MMOL/L Chloride Level 111 H 98-107 MMOL/L Carbon Dioxide Level 19 L 21-32 MMOL/L Anion Gap 8 5-14 MMOL/L Blood Urea Nitrogen 17 7-18 MG/DL Creatinine 0.77 0.60-1.30 MG/DL Estimat Glomerular Filtration Rate > 60 BUN/Creatinine Ratio 22 Glucose Level 104 70-105 MG/DL Calcium Level 9.1 8.5-10.1 MG/DL Corrected Calcium 8.9 8.5-10.1 MG/DL Magnesium Level 2.3 1.8-2.4 MG/DL Total Bilirubin 0.1 0.1-1.0 MG/DL Aspartate Amino Transf (AST/SGOT) 12 5-34 U/L Alanine Aminotransferase (ALT/SGPT) 13 0-55 U/L Alkaline Phosphatase 79 40-136 U/L Myoglobin 23.7 10.0-92.0 NG/ML Troponin I < 0.30 <0.30 NG/ML Total Protein 6.9 6.4-8.2 GM/DL Albumin 4.2 3.2-4.5 GM/DL Serum Test, Qualitative NEGATIVE NEGATIVE My Orders Orders - PERNELL MARS MD Cbc With Automated Diff (08/05/18:) Magnesium (08/05/18:) Ekg Tracing (08/05/18) Cardiac Profile 1 (08/05/18) Comprehensive Metabolic Panel (08/05/18) Myoglobin Serum (08/05/18) Protime With Inr (08/05/18) Partial Thromboplastin Time (08/05/18) O2 (08/05/18) Monitor-Rhythm Ecg Trace Only (08/05/18) Lipid Panel (08/06/18 06:00) Saline Lock/Iv-Start (08/05/18:) Fibrin Degradation Products (08/05/18:) Chest Pa/Lat (2 View) (08/05/18:) Ct Head/Cervical Spine Wo (08/05/18:) Drug Screen Stat (Urine) (08/05/18:) Hcg,Qualitative Serum (08/05/18) Ua Culture If Indicated (08/05/18:) Orthostatic Vital Signs (Adult (08/05/18 13:26) Saline Lock/Iv-Start (08/05/18 13:56) Ns Iv 1000 Ml (Sodium Chloride 0.9%) (08/05/18 13:56) Ct Angio Chest W (08/05/18 14:18) Iohexol Injection (Omnipaque 350 Mg/Ml 1 (08/05/18 14:45) Contrast Received (Contrast Received) (08/05/18 14:45) Ns (Ivpb) (Sodium Chloride 0.9%) (08/05/18 14:45) Medications Given in ED Current Medications Medications Dose Ordered Sig/Saúl Route Start Time Stop Time Status Last Admin Dose Admin Iohexol 150 ml ONCE ONCE IV 08/05/18 14:45 08/05/18 14:46 DC 08/05/18 14:38 125 ML Sodium Chloride 250 ml ONCE ONCE IV 08/05/18 14:45 08/05/18 14:46 DC 08/05/18 14:39 80 ML Sodium Chloride 1,000 ml @ 0 mls/hr Q0M ONCE IV 08/05/18 13:56 08/05/18 13:58 DC 08/05/18 14:20 1,000 MLS/HR Vital Signs/I&O 08/05/18 08/05/18 08/05/18 08/05/18 12:56 13:30 17:27 17:35 Temp 98.0 98.5 Pulse 101 82 89 85 90 103 Resp 20 20 18 B/P (MAP) 149/102 (118) 132/87 (102) 144/108 (120) 141/95 (110) 123/103 (110) 144/108 (120) Pulse Ox 97 97 95 O2 Delivery Room Air Room Air Room Air 08/05/18 08/05/18 18:35 18:42 Temp 98.8 Pulse 84 Resp 18 B/P (MAP) 149/85 (106) Pulse Ox 97 O2 Delivery Room Air Room Air Capillary Refill : Less Than 3 Seconds Blood Pressure Mean: 118 Progress Note #1: Time: 14:30 Progress Note Patient seen and assessed. Labs reviewed. D-dimer was elevated. Risks and benefits of CT angiogram reviewed with patient. She would like to proceed with CT angiogram. Orthostatic blood pressures were as follows: Lying 132/87, heart rate 82 Sitting 123/103, heart rate 90 Standing 144/108, heart rate 103 There was an increase in heart rate in standing position. IV fluids were ordered and are infusing. Progress Note #2: Progress Note CT angiogram revealed no acute pathology. Patient was offered observation with possible implantation of a loop recorder under the direction of Dr. Simpson versus follow-up in his clinic later this week. Patient elects observation which is probably the safest thing for her since she has had 2 episodes of syncope this past week. BuSpar will not be continued as the timing of starting BuSpar seems to also correlate with the episodes of dizziness and syncope. ECG Initial ECG Impression Date: Aug 05, 2018 Initial ECG Impression Time: 13:38 Initial ECG Rate: 80 Initial ECG Rhythm: Normal Sinus Initial ECG Intervals: Normal Initial ECG Impression: Normal Comment Normal sinus rhythm with no ST elevation or depression. No abnormal intervals or axis deviation. Diagnostic Imaging Diagonstic Imaging: CT Plain Films/CT/US/NM/MRI: c-spine, head Comments CT head and C-spine viewed by me and discussed with radiologist. No acute intracranial findings. No mass. No stenosis in the cervical spine. Diagonstic Imaging: Xray Plain Films/CT/US/NM/MRI: chest Comments Chest x-ray viewed by me. Report not yet available. No acute abnormalities appreciated. Departure Communication (Admissions) Time/Spoke to Admitting Phy: 16:10 Dr. Shelton Time/Spoke to Consulting Phy: 16:00 Dr. Simpson Impression Primary Impression: Syncope Qualified Codes: R55 - Syncope and collapse Additional Impression: Atypical chest pain Disposition: ADMITTED INPATIENT Condition: Stable Admissions Decision to Admit Reason: Admit from ER (General) Decision to Admit/Date: Aug 05, 2018 Time/Decision to Admit Time: 16:00 Departure-Patient Inst. Referrals: EDGAR SIMON (PCP/Family) Primary Care Physician PERNELL MARS MD Aug 05, 2018 13:41
[2018-08-05 13:49] LABS: BACTERIA,URINE FEW /HPF
[2018-08-05] MEDS ORDERED: NS IV 1000 ML 1,000 ML IV ONE (13:56)
[2018-08-05 13:57] LABS: AMPHETAMINE SCREEN, URINE NEGATIVE (NEGATIVE); BARBITURATE SCREEN URINE NEGATIVE (NEGATIVE); BENZODIAZEPINES SCREEN URINE NEGATIVE (NEGATIVE); CANNABINOID SCREEN, URINE NEGATIVE (NEGATIVE); COCAINE SCREEN URINE NEGATIVE (NEGATIVE); METHADONE STAT NEGATIVE (NEGATIVE); METHAMPHETAMINE SCREEN URINE S NEGATIVE (NEGATIVE); OPIATE SCREEN URINE NEGATIVE (NEGATIVE); OXYCODONE STAT NEGATIVE (NEGATIVE); PROPOXYPHENE STAT NEGATIVE (NEGATIVE); TRICYCLIC ANTIDEPRESSANTS SCRE NEGATIVE (NEGATIVE)
[2018-08-05 13:58] LABS: BASOPHILS % (AUTO) 0 % (0-10); EOSINOPHILS # (AUTO) 0.4 10^3/uL (0.0-0.3); EOSINOPHILS % (AUTO) 4 % (0-10); HEMATOCRIT 41 % (35-52); HEMOGLOBIN 13.5 G/DL (11.5-16.0); LYMPHOCYTES % (AUTO) 36 % (12-44); MEAN CORPUSCULAR HEMOGLOBIN 28 PG (25-34); MEAN CORPUSCULAR HGB CONC 33 G/DL (32-36); MEAN CORPUSCULAR VOLUME 86 FL (80-99); MONOCYTES # (AUTO) 0.9 X 10^3 (0.0-1.0); MONOCYTES % (AUTO) 8 % (0-12); NEUTROPHILS % (AUTO) 53 % (42-75); PLATELET COUNT 280 10^3/uL (130-400); RED BLOOD COUNT 4.75 10^6/uL (4.35-5.85); RED CELL DISTRIBUTION WIDTH 16.1 % (10.0-14.5); WHITE BLOOD COUNT 11.3 10^3/uL (4.3-11.0)
[2018-08-05 14:07] LABS: PROTHROMBIN TIME PATIENT 13.1 SEC (12.2-14.7)
[2018-08-05 14:15] LABS: ALANINE AMINOTRANSFERASE 13 U/L (0-55); ALBUMIN 4.2 GM/DL (3.2-4.5); ALKALINE PHOSPHATASE 79 U/L (40-136); BILIRUBIN,TOTAL 0.1 MG/DL (0.1-1.0); BUN/CREATININE RATIO 22; CALCIUM 9.1 MG/DL (8.5-10.1); CARBON DIOXIDE 19 MMOL/L (21-32); CHLORIDE 111 MMOL/L (98-107); CREATININE SERUM 0.77 MG/DL (0.60-1.30); GFR ESTIMATED > 60; GLUCOSE 104 MG/DL (70-105); MAGNESIUM 2.3 MG/DL (1.8-2.4); POTASSIUM 3.7 MMOL/L (3.6-5.0); SODIUM 138 MMOL/L (135-145); TOTAL PROTEIN 6.9 GM/DL (6.4-8.2)
[2018-08-05 14:24] LABS: MYOGLOBIN SERUM 23.7 NG/ML (10.0-92.0)
[2018-08-05] MEDS ORDERED: RECEIVED CONTRAST (Hold Metformin) IV SCH (14:45)
[2018-08-05] MEDS ORDERED: NS 250 ML (IVPB) BAG IV ONE (14:45)
[2018-08-05] MEDS ORDERED: IOHEXOL 350 MG/ML 150 ML (OMNIPAQUE 350) VIAL IV ONE (14:45)
--- NOTE | 2018-08-05 16:16 | Diagnostic Imaging Report ---
PROCEDURE: CT head and CT cervical spine without contrast. TECHNIQUE: Multiple contiguous axial images were obtained through the brain and cervical spine without the use of intravenous contrast. Sagittal and coronal reformations through the cervical spine were then performed. INDICATION: Fall with head and neck injury. FINDINGS: CT head: Ventricles and sulci are within normal limits. No sulcal effacement, midline shift, or hemorrhage is detected. Cisterns are patent. The visualized paranasal sinuses are clear. IMPRESSION: No acute intracranial process is detected. CT cervical spine: There is some straightening of the normal cervical lordotic curvature. No fracture or subluxation is identified. The prevertebral tissues are within normal limits. The odontoid is intact. IMPRESSION: No acute bony abnormality is detected. Dictated by: Dictated on workstation # [id number]
--- NOTE | 2018-08-05 16:21 | Diagnostic Imaging Report ---
INDICATION: Hypertension and syncope. TIME OF EXAM: 2:37 PM CORRELATION is made with prior study from 07/31/2018. FINDINGS: The heart size is normal. The pulmonary vascularity is unremarkable. The lungs are clear. No infiltrate, effusion or pneumothorax is detected. IMPRESSION: No acute cardiopulmonary process is detected. Dictated by: Dictated on workstation # [id number]
--- NOTE | 2018-08-05 16:23 | Diagnostic Imaging Report ---
PROCEDURE: CT angiography of the chest with contrast. TECHNIQUE: Multiple contiguous axial images were obtained through the chest after uneventful bolus administration of intravenous contrast. 2D reconstructed CTA MIP acquisitions were also performed. INDICATION: High blood pressure and shortness of air. FINDINGS: Evaluation of the pulmonary arterial system is without evidence of thromboembolism. No filling defects are seen within central, lobar, or segmental branches. The aorta is without evidence of dissection or aneurysm. No pericardial or pleural fluid is seen. No pulmonary infiltrates, nodules, or masses are seen. The upper abdomen is unremarkable. There is a moderate-sized hiatal hernia. IMPRESSION: 1. No evidence of pulmonary embolism or thoracic aortic dissection. 2. Hiatal hernia. Dictated by: Dictated on workstation # [id number]
[2018-08-05 17:35] VITALS: BP 141/95
[2018-08-05] MEDS ORDERED: NICOTINE 21 MG (NICODERM) PATCH TD PRN (17:45)
[2018-08-05] MEDS ORDERED: RT-ALBUTEROL SULF 2.5 MG/3 ML PRE-MIX VIAL IH PRN (17:45)
--- NOTE | 2018-08-05 18:08 | Consultation-Cardiology ---
HPI-Cardiology Cardiology Consultation: Date of Consultation 08/05/18 Time Seen by a Provider: 17:30 Date of Admission Attending Physician Emerald Shelton MD Admitting Physician Stephanie Capellan Consulting Physician DIXIE CERON MD, MA, FACP, FACC, FSCAI, CCDS HPI: Chief Complaint: CC: Syncope 37 yo woman who has had a couple of episodes of syncope in the last week, each occurring when she was on her feet, each lasting a few sec. Last episode earlier today at [facility]. Was pushing a cart. Had friend with her. May have fallen to the ground if her friend didn't help her down. Passed in a few seconds. No palp. No warning symptoms. No symptoms afterwards. Has also had chest discomfort: onset a week ago, lasting a few sec to a few min , several episodes a day, once with radiation down the L arm, mild to mod, sharp and stabbing in character, not associated with other symptoms Has chronic mild shortness of breath Denies ankle swelling or palp Review of Systems-Cardiology Review of Systems Constitutional: No malaise, No tiredness, No weight loss, No weight gain Ears/Nose/Throat: No ear discharge, No mouth swelling, No recent hearing loss Respiratory: As described under HPI Cardiovascular: As described under HPI Gastrointestinal: No constipation, No diarrhea, No nausea, No vomiting Genitourinary: No dysuria, No hematuria, No urine frequency changes Musculoskeletal: No back pain, No joint pain Psychiatric/Neurological: anxiety, depression; No seizure, No focal weakness, No syncope [id number] Hx Patient Social History Alcohol Use: Denies Use Recreational Drug Use: No Smoking Status: Current Everyday Smoker Recent Foreign Travel: No Recent Infectious Disease Expo: No Hospitalization with Isolation: Denies Physical Abuse Screen: No Sexual Abuse: No Immunizations Up To Date Tetanus Booster (TDap): Unknown Date of Pneumonia Vaccine: Jun 01, 2014 Date of Influenza Vaccine: Aug 02, 2018 Past Medical History PMH As described under Assessment. Family Medical History Family History: Cardiovascular disease MATERNAL GRANDMOTHER PATERNAL GRANDMOTHER Diabetes mellitus MATERNAL GRANDMOTHER FH: cancer MATERNAL GRANDMOTHER Hypertension MATERNAL GRANDMOTHER MATERNAL GRANDFATHER PATERNAL GRANDMOTHER PATERNAL GRANDFATHER Allergies and Home Medications Allergies Coded Allergies: tramadol (Verified Allergy, Intermediate, RASH, 10/18/15) Penicillins (Unverified Allergy, Unknown, 06/22/14) as a child, pt. verbalizes she can take Z-Curly, etc Procaine HCl (Unverified Allergy, Unknown, 06/22/14) codeine (Unverified Allergy, Unknown, 10/18/15) HAD CHILD Home Medications Albuterol 8.5 Gm Hfa.aer.ad, 1-2 PUFF IH Q4H PRN for SHORTNESS OF BREATH, ( Reported) 1 PUFFS Amlodipine Besylate 5 Mg Tablet, 5 MG PO DAILY, (Reported) Metoprolol Tartrate 25 Mg Tablet, 25 MG PO BID Prescribed by: KAYLIE COTTER on 07/31/18 3758 Patient Home Medication List Home Medication List Reviewed: Yes Physical Exam-Cardiology Physical Exam Vital Signs/I&O 08/05/18 08/05/18 08/05/18 12:56 13:30 17:27 Temp 98.0 Pulse 101 82 89 90 103 Resp 20 20 B/P (MAP) 149/102 (118) 132/87 (102) 144/108 (120) 123/103 (110) 144/108 (120) Pulse Ox 97 97 O2 Delivery Room Air Room Air Capillary Refill : Less Than 3 Seconds Constitutional: AAO x 3, well-developed, well-nourished HEENT: EOMI, hearing is well preserved; No xanthelasmas are seen Neck: carotid pulses are 2 + bilaterally, with good upstrokes Respiratory: No accessory muscle use; lungs clear to percussion, lungs clear to auscultation Cardiovascular: regular rate-rhythm, S1 and S2, systolic murmur (faint ANILA at card base) Gastrointestinal: No tender; soft; No guarding, No rebound; audible bowel sounds Extremities: No clubbing, No cyanosis, No significant edema Neurologic/Psychiatric: oriented x 3, grossly intact, power is 5/5 both on sides Skin: No rash on exposed areas, No ulcerations on exposed areas Data Review Labs Laboratory Tests 08/05/18 13:21: Urine Color YELLOW, Urine Clarity CLEAR, Urine pH 5, Urine Specific [place] 1.020, Urine Protein 2+H, Urine Glucose (UA) NEGATIVE, Urine Ketones 1+H, Urine Nitrite NEGATIVE, Urine Bilirubin NEGATIVE, Urine Urobilinogen 1, Urine Leukocyte Esterase 1+H, Urine RBC (Auto) NEGATIVE, Urine RBC NONE, Urine WBC 2-5 , Urine Squamous Epithelial Cells 10-25H, Urine Crystals NONE, Urine Bacteria FEWH, Urine Casts NONE, Urine Mucus SMALLH, Urine Culture Indicated NO, Urine Opiates Screen NEGATIVE, Urine Oxycodone Screen NEGATIVE, Urine Methadone Screen NEGATIVE, Urine Propoxyphene Screen NEGATIVE, Urine Barbiturates Screen NEGATIVE, Ur Tricyclic Antidepressants Screen NEGATIVE, Urine Phencyclidine Screen NEGATIVE, Urine Amphetamines Screen NEGATIVE, Urine Methamphetamines Screen NEGATIVE, Urine Benzodiazepines Screen NEGATIVE, Urine Cocaine Screen NEGATIVE, Urine Cannabinoids Screen NEGATIVE 08/05/18 13:50: White Blood Count 11.3H, Red Blood Count 4.75, Hemoglobin 13.5, Hematocrit 41, Mean Corpuscular Volume 86, Mean Corpuscular Hemoglobin 28, Mean Corpuscular Hemoglobin Concent 33, Red Cell Distribution Width 16.1H, Platelet Count 280, Mean Platelet Volume 12.0H, Neutrophils (%) (Auto) 53, Lymphocytes (%) (Auto) 36 , Monocytes (%) (Auto) 8, Eosinophils (%) (Auto) 4, Basophils (%) (Auto) 0, Neutrophils # (Auto) 6.0, Lymphocytes # (Auto) 4.0, Monocytes # (Auto) 0.9, Eosinophils # (Auto) 0.4H, Basophils # (Auto) 0.0, Prothrombin Time 13.1, INR Comment 1.0, Activated Partial Thromboplast Time 29, D-Dimer 0.69H, Sodium Level 138, Potassium Level 3.7, Chloride Level 111H, Carbon Dioxide Level 19L, Anion Gap 8, Blood Urea Nitrogen 17, Creatinine 0.77, Estimat Glomerular Filtration Rate > 60, BUN/Creatinine Ratio 22, Glucose Level 104, Calcium Level 9.1, Corrected Calcium 8.9, Magnesium Level 2.3, Total Bilirubin 0.1, Aspartate Amino Transf (AST/SGOT) 12, Alanine Aminotransferase (ALT/SGPT) 13, Alkaline Phosphatase 79, Myoglobin 23.7, Troponin I < 0.30, Total Protein 6.9, Albumin 4.2, Serum Test, Qualitative NEGATIVE Laboratory Tests 08/05/18 13:50 ECG Impression ECG Comment ECG on 08/05/18: NSR, WNL A/P-Cardiology Assessment/Admission Diagnosis Syncope of undetermined etiology Chest discomfort of undetermined etiology H/o bronchial asthma H/o anxiety and depression Chronic tobacco use Discussion and Recomendations * Telemetry * Echo to eval for structural heart disease * ETT echo to eval for arrhythmia/ischemia * Consider ILR placement to eval of arrhythmia as the cause of syncope * All of the above reviewed with her and questions answered * Advised to quit smoking immediately and completely Clinical Quality Measures DVT/VTE Risk/Contraindication: Risk Factor Score Per Nursin RFS Level Per Nursing on Admit: 4+=Very High DIXIE CERON MD FACP FACC CCDS Aug 05, 2018 18:08
[2018-08-05] MEDS: NS IV 1000 ML 1,000 ML IV SCH (18:15)
[2018-08-05 18:35] VITALS: BP 149/85
[2018-08-05 19:35] VITALS: BP 143/99
[2018-08-05 20:35] VITALS: BP 141/94
[2018-08-05 23:49] VITALS: BP 146/89
[2018-08-06 03:51] VITALS: BP 140/80
[2018-08-06] MEDS ORDERED: ACETAMINOPHEN 325 MG TABLET PO PRN (04:15)
[2018-08-06] MEDS: NS IV 1000 ML 1,000 ML IV SCH (05:45)
[2018-08-06 06:18] LABS: CHOLESTEROL 166 MG/DL (< 200); HDL CHOLESTEROL 26 MG/DL (40-60); TRIGLYCERIDES 122 MG/DL (<150); VLDL CHOLESTEROL 24 MG/DL (5-40)
[2018-08-06 08:04] VITALS: BP 135/84
[2018-08-06] MEDS ORDERED: METO-333 PO (08:36)
[2018-08-06] MEDS ORDERED: AMLO5TAB7 PO (08:36)
[2018-08-06] MEDS ORDERED: BUSP10TA95 PO (08:36)
[2018-08-06] MEDS ORDERED: DICL100T3 PO (08:36)
[2018-08-06] MEDS ORDERED: RT-ALBUINH INH (08:36)
[2018-08-06] MEDS ORDERED: ALBU2.5V4 NEB (08:39)
[2018-08-06] MEDS ORDERED: BUDE10.22 INH (08:39)
[2018-08-06] MEDS ORDERED: IBUP-30 PO (08:39)
[2018-08-06] MEDS ORDERED: NICOTINE PATCH REMOVAL TP SCH (08:59)
--- NOTE | 2018-08-06 10:22 | Short Stay Summary-Hospitalist ---
History of Present Illness HPI/Chief Complaint Pt is a 37yoCF with a PMH of HTN who presented to the ER for syncope and HTN. She states that on 07/31 she was found to have high blood pressure when she didn 't feel well. She was seen in the ER and started on antihypertensives though she is unsure what this was. She was then seen by her PCP who started her on more antihypertensives in follow up. On 08/03 she was in her house going to sit down and suddenly passed out and hit her head on the oven. Yesterday she was walking in the store and felt like she was going to pass out so her sister lowered her to the ground. She has a history of similar episodes and was told her blood sugar was low at that time. She called her PCP who recommended she present to the ER for evaluation. She was admitted for further cardiac work up and monitoring. Source: patient Date Seen 08/06/18 Time Seen by a Provider: 09:30 Attending Physician Ori Suárez MD PCP Stephanie Capellan Referring Physician Date of Admission Aug 05, 2018 at 4:10 pm Home Medications & Allergies Home Medications Reviewed patient Home Medication Reconciliation performed by pharmacy medication reconciliations tar processing technician and/or nursing. Patients Allergies have been reviewed. Allergies Allergies Coded Allergies tramadol (Verified Allergy, Intermediate, RASH, 10/18/15) Penicillins (Unverified Allergy, Unknown, 06/22/14) as a child, pt. verbalizes she can take Z-Curly, etc Procaine HCl (Unverified Allergy, Unknown, 06/22/14) codeine (Unverified Allergy, Unknown, 10/18/15) HAD CHILD Past Knwkjgm-Wcderu-Mlhagl Hx Past Med/Social Hx: Reviewed and Corrections made Patient Social History Alcohol Use: Denies Use Recreational Drug Use: No Smoking Status: Current Everyday Smoker Physical Abuse Screen: No Sexual Abuse: No Recent Foreign Travel: No Contact w/other who traveled: No Recent Infectious Disease Expo: No Immunizations Up To Date Tetanus Booster (TDap): Unknown Pediatric: No Date of Pneumonia Vaccine: Jun 01, 2014 Date of Influenza Vaccine: Aug 02, 2018 Seasonal Allergies Seasonal Allergies: No Past Medical History Surgeries: Section (x3), Orthopedic, Tonsillectomy Cardiac: Hypertension, Syncope Reproductive: No Sexually Transmitted Disease: No HIV/AIDS: No Female Reproductive Disorders: Ovarian Cyst Gastrointestinal: Gall Bladder Disease Loss of Vision: Bilateral Hearing Impairment: Denies Psychosocial: Anxiety, Depression History of Blood Disorders: No Adverse Reaction to Blood Serrano: No Family History Reviewed Nursing Family Hx Cardiovascular disease MATERNAL GRANDMOTHER PATERNAL GRANDMOTHER Diabetes mellitus MATERNAL GRANDMOTHER FH: cancer MATERNAL GRANDMOTHER Hypertension MATERNAL GRANDMOTHER MATERNAL GRANDFATHER PATERNAL GRANDMOTHER PATERNAL GRANDFATHER Review of Systems Constitutional: No chills, No fever EENTM: No blurred vision, No double vision, No nose congestion, No throat pain Respiratory: No cough, No dyspnea on exertion, No short of breath Cardiovascular: see HPI, syncope Gastrointestinal: No abdominal pain, No constipation, No diarrhea, No nausea, No vomiting Genitourinary: No dysuria, No frequency Musculoskeletal: No joint pain, No muscle pain Skin: No lesions, No rash Psychiatric/Neurological: Denies Headache, Denies Numbness, Denies Tingling Physical Exam Physical Exam Vital Signs Vital Signs - First Documented 08/05/18 12:56 Temp 98.0 Pulse 101 Resp 20 B/P (MAP) 149/102 (118) Pulse Ox 97 O2 Delivery Room Air Capillary Refill : Less Than 3 Seconds Height, Weight, BMI Height: 5'4.00" Weight: 150lbs. 0.0oz. [id number]; 31.21 BMI Method:Stated General Appearance: No Apparent Distress, WD/WN HEENT: PERRL/EOMI, Moist Mucous Membranes Neck: Non Tender, Supple Respiratory: Lungs Clear, No Respiratory Distress Cardiovascular: Regular Rate, Rhythm, No Murmur Gastrointestinal: Normal Bowel Sounds, Non Tender, Soft Extremity: Normal Capillary Refill, No Calf Tenderness Neurologic/Psychiatric: Alert, Oriented x3, Normal Mood/Affect Skin: Normal Color, Warm/Dry Results Results/Procedures Labs Laboratory Tests 08/05/18 13:50 Patient resulted labs reviewed. Short Stay Diagnosis Discharge Diagnosis-Short Stay Admission Diagnosis Syncope Final Discharge Diagnosis Syncope Conclusion Plan Syncope Given sporadic nature concern for cardiac etiology Plan for stress echo and possible implantable loop recorder today to monitor patient requested going out to smoke before her stress test but advised that is against medical advice Offered refusal to treat paperwork to sign to go outside but she refused and elected to DC again medical against without further cardiac studies AMA paperwork signed and she was DC home Clinical Quality Measures DVT/VTE Risk/Contraindication: Risk Factor Score Per Nursin RFS Level Per Nursing on Admit: 4+=Very High ORI SUÁREZ MD Aug 06, 2018 10:21
== END 2018-08-06 11:00 | disposition left against medical advice (07) ==
LOC: EDUNIT# 12:39 → ER 12:40 → 4TH 16:10 → UNDOADMOB 16:10 → 4TH 17:35 → UNDODISOB 08-06 13:36
PROVIDERS: ADMIT Family Medicine; ATTEND Family Medicine
DX: R55 Syncope and collapse (principal); I10 Essential (primary) hypertension; F41.9 Anxiety disorder, unspecified; F32.9 Major depressive disorder, single episode, unspecified; F17.210 Nicotine dependence, cigarettes, uncomplicated; R07.89 Other chest pain; J45.909 Unspecified asthma, uncomplicated
CPT/HCPCS: 36415; 70450; 71046; 71275; 72125; 80053; 80061; 80306; 81000; 83735; 83874; 84484; 84703; 85025; 85379; 85610; 85730; 87081; 93005; 93041; 96360; G0378

== ENCOUNTER → 2018-09-04 | Outpatient (CLI) | payer MEDICAID ==
[2018-09-04] VITALS (28 sets, daily range): BP systolic 109–137; BP diastolic 76–108
[~2018-09-04] MED LIST changes: +ALBU2.5V4 NEB; +AMLO5TAB7 PO; +BUDE10.22 INH; +BUSP10TA95 PO; +DICL100T3 PO; +IBUP-30 PO; +NS IV 1000 ML 1,000 ML ONE; +RT-ALBUINH INH
--- NOTE | 2018-09-04 12:00 | Cardiology Tilt Table Test ---
Cardiology-Tilt Table Test Tilt Table Test Date 09/04/18 Baseline Vitals Vital Signs Date Time Temp Pulse Resp B/P (MAP) Pulse Ox O2 Delivery O2 Flow Rate FiO2 09/04/18 11:09 91 16 115/90 (98) 98 Vital Signs VS - Last 72 Hours, by Label 09/04/18 09/04/18 09/04/18 09/04/18 11:09 11:10 11:17 11:18 Pulse 91 85 93 90 Resp 16 B/P (MAP) 115/90 (98) 130/108 (115) 137/104 (115) 129/101 (110) Pulse Ox 98 100 99 99 09/04/18 09/04/18 09/04/18 09/04/18 11:19 11:20 11:21 11:22 Pulse 98 96 100 93 B/P (MAP) 129/93 (105) 131/93 (106) Pulse Ox 98 99 98 99 09/04/18 09/04/18 09/04/18 09/04/18 11:23 11:24 11:25 11:26 Pulse 97 80 97 75 B/P (MAP) 125/108 (114) 131/99 (110) 133/107 (116) 117/85 (96) Pulse Ox 97 98 96 98 09/04/18 09/04/18 09/04/18 09/04/18 11:27 11:28 11:29 11:30 Pulse 75 92 84 93 B/P (MAP) 116/83 (94) 116/81 (93) 124/81 (95) Pulse Ox 99 97 98 94 09/04/18 09/04/18 09/04/18 09/04/18 11:31 11:32 11:33 11:34 Pulse 81 93 98 110 B/P (MAP) 120/81 (94) 115/77 (90) 120/100 (107) Pulse Ox 95 95 94 94 09/04/18 09/04/18 09/04/18 09/04/18 11:35 11:36 11:37 11:38 Pulse 116 117 108 93 B/P (MAP) 124/90 (101) 120/80 (93) 122/85 (97) Pulse Ox 96 96 97 97 09/04/18 09/04/18 09/04/18 09/04/18 11:39 11:40 11:41 11:42 Pulse 93 84 89 96 B/P (MAP) 125/96 (106) 124/91 (102) 127/76 (93) Pulse Ox 97 97 97 96 09/04/18 09/04/18 09/04/18 09/04/18 11:43 11:44 11:45 11:46 Pulse 86 87 92 92 B/P (MAP) 121/90 (100) 124/82 (96) 118/100 (106) Pulse Ox 96 96 96 98 09/04/18 09/04/18 09/04/18 11:47 11:48 11:51 Pulse 90 100 86 B/P (MAP) 127/96 (106) 109/80 (90) 119/77 (91) Pulse Ox 98 97 98 Patient was tilted to 75 degrees for [10] minutes, then returned to supine position, given [2] sublingual nitroglycerin tablets, then tilted again to 75 degrees for [15] minutes. During test, patient was: asymptomatic In Conclusion;: Negative Tilt Table Test This is Denisse Pearce PA-C, as a scribe for Dr. Atwood. DENISSE MATHIAS Sep 04, 2018 12:00
--- NOTE | 2018-09-04 16:20 | Cardiology Stress Test Report ---
Stress Test Report Date of Procedure/Referring: Date of Procedure: Sep 04, 2018 PCP Trevor Atwood MD Admitting Physician Stephanie Capellan Baseline Heart Rate: 89 Baseline Blood Pressure: Blood Pressure Systolic: 119 Blood Pressure Diastolic: 77 Baseline EKG: Baseline EKG: normal EKG Summary/Conclusion: Summary: In summary, the patient started exercising with a baseline heart rate, blood pressure and EKG mentioned above Patient was able to exercise for a total of 4:19 minutes on Lonnie protocol, 5.8 METs Maximum heart rate 144 Maximum blood pressure 180/50 Stress EKG no arrhythmia or ischemia on EKG Recovery EKG normal Conclusion: 1. Submaximal exercise tolerance for a total of 4:19 minutes on Lonnie protocol , 5.8 METs, achieving 78% percent of maximum expected heart rate 2. Negative stress test by EKG 3. No arrhythmia was noted 4. Patient became extremely dizzy and had chest pain during exercise, no EKG changes TREVOR ATWOOD MD Sep 04, 2018 16:20
== END ==
LOC: CARD 10:11
PROVIDERS: ATTEND Internal Medicine Cardiovascular Disease
DX: I11.9 Hypertensive heart disease without heart failure (principal); R55 Syncope and collapse; Z72.0 Tobacco use
CPT/HCPCS: 93017; 93660

== ENCOUNTER 2019-04-20 14:20 | Emergency (ER) | payer MEDICAID ==
[~2019-04-20] VITALS: Ht 152.4 cm; Wt 81.6 kg
[~2019-04-20 14:20] MED LIST changes: -AMLO5TAB7 PO; +AMLO5TAB9 PO; -DICL100T3 PO; +DICL100T83 PO; -NS IV 1000 ML 1,000 ML ONE; +RT-ALBUTEROL/IPRATROPIUM 3 ML (DUONEB) VIAL ONE
[2019-04-20] MEDS ORDERED: RT-ALBUTEROL SULF 2.5 MG/3 ML PRE-MIX VIAL INH STA (14:24)
[2019-04-20] MEDS ORDERED: RX-ALBUTEROL INHALER (PROAIR) 8.5 GM IH ONE (14:26)
[2019-04-20] MEDS ORDERED: RT-ALBUTEROL/IPRATROPIUM 3 ML (DUONEB) VIAL INH ONE (14:30)
--- NOTE | 2019-04-20 14:35 | ED Respiratory ---
General Chief Complaint: Respiratory Problems Stated Complaint: ASTHMA ATTACK Nursing Triage Note: PT TO RM 3 WITH COMPLAINT OF SOA/ASTHMA ATTACK. STATES SHE HAS ASTHMA AND IS OUT OF HER INHALERS. Source: patient Exam Limitations: no limitations History of Present Illness Date Seen by Provider: Apr 20, 2019 Time Seen by Provider: 14:25 Initial Comments Here with report of shortness of air and asthma attack. Patient states that this was caused by changing temperature of air fluid going inside and outside. She normally has an albuterol inhaler but apparently elected at home are fell out of her purse. Because of that she was not able to use her rescue inhaler and she got here. She arrives with normal oxygen saturations and wheezing with decreased air movement. Very anxious. Timing/Duration: getting worse Severity: moderate Prior Episodes/Possible Cause: occasional episodes Modifying Factors: Worse With Activity; Improves With Albuterol Inhaler Associated Symptoms: No cough, No fever/chills; shortness of breath, wheezing Allergies and Home Medications Allergies Coded Allergies: tramadol (Verified Allergy, Intermediate, RASH, 10/18/15) Penicillins (Unverified Allergy, Unknown, 06/22/14) as a child, pt. verbalizes she can take Z-Curly, etc Procaine HCl (Unverified Allergy, Unknown, 06/22/14) codeine (Unverified Allergy, Unknown, 10/18/15) HAD CHILD Home Medications Albuterol Sulfate 1 Puff Puff, 2 PUFF INH Q4H PRN for SHORTNESS OF BREATH, (Reported) Albuterol Sulfate 2.5 Mg/3 Ml Vial.neb, 2.5 MG NEB Q4H PRN for SHORTNESS OF BREATH, (Reported) Amlodipine Besylate 5 Mg Tablet, 5 MG PO DAILY, (Reported) Budesonide/Formoterol Fumarate 10.2 Gm Hfa.aer.ad, 2 PUFF INH BID PRN for WHEEZING, (Reported) Buspirone HCl 10 Mg Tablet, 10 MG PO TID, (Reported) Diclofenac Sod 100 Mg Tab, 100 MG PO HS, (Reported) Duloxetine HCl 60 Mg Capsule.dr, 120 MG PO DAILY, (Reported) TAKES 2 (60MG) CAPSULES Ibuprofen 200 Mg Tablet, 800 MG PO TID PRN for PAIN-MILD, (Reported) Metoprolol Tartrate 25 Mg Tablet, 25 MG PO BID, (Reported) Patient Home Medication List Home Medication List Reviewed: Yes Review of Systems Review of Systems Constitutional: see HPI; No chills, No fever Respiratory: see HPI, short of breath, wheezing Cardiovascular: no symptoms reported Gastrointestinal: no symptoms reported Genitourinary: no symptoms reported Musculoskeletal: no symptoms reported Psychiatric/Neurological: Anxiety; Denies Weakness Past Jdzzgzp-Fvtmnj-Ihctph Hx Past Med/Social Hx: Reviewed Nursing Past Med/Soc Hx Patient Social History Alcohol Use: Denies Use Recreational Drug Use: No Smoking Status: Current Everyday Smoker Type Used: Cigarettes Recent Foreign Travel: No Contact w/Someone Who Travel: No Recent Infectious Disease Expo: No Immunizations Up To Date Tetanus Booster (TDap): Unknown PED Vaccines UTD: No Date of Pneumonia Vaccine: Jun 01, 2014 Date of Influenza Vaccine: Aug 02, 2018 Seasonal Allergies Seasonal Allergies: No Past Medical History Surgeries: Yes (METAL PLATE RIGHT ARM, D&C) Section, Orthopedic, Tonsillectomy Respiratory: Yes Asthma Cardiac: Yes Hypertension, Syncope Neurological: Yes Reproductive Disorders: No Female Reproductive Disorders: Ovarian Cyst Sexually Transmitted Disease: No HIV/AIDS: No Genitourinary: No Gastrointestinal: Yes Gall Bladder Disease Musculoskeletal: No Endocrine: No HEENT: No Loss of Vision: Bilateral Hearing Impairment: Denies Cancer: No Psychosocial: Yes Anxiety, Depression Integumentary: No Blood Disorders: No Adverse Reaction/Blood Tranf: No Family Medical History Reviewed Nursing Family Hx Cardiovascular disease MATERNAL GRANDMOTHER PATERNAL GRANDMOTHER Diabetes mellitus MATERNAL GRANDMOTHER FH: cancer MATERNAL GRANDMOTHER Hypertension MATERNAL GRANDMOTHER MATERNAL GRANDFATHER PATERNAL GRANDMOTHER PATERNAL GRANDFATHER Physical Exam Vital Signs - First Documented 04/20/19 14:23 Pulse 90 Resp 16 B/P (MAP) 133/116 (122) Pulse Ox 97 O2 Delivery Room Air Capillary Refill : Less Than 3 Seconds Height: 5'0" Weight: 180lbs. 0.0oz. [id number]; 31.21 BMI Method:Stated General Appearance: WD/WN, no apparent distress HEENT: PERRL/EOMI, pharynx normal Neck: full range of motion, supple Respiratory: respiratory distress, accessory muscle use, wheezing Cardiovascular: regular rate, rhythm, no murmur Extremities: normal range of motion, non-tender, normal inspection, no pedal edema, no calf tenderness Neurologic/Psychiatric: alert, oriented x 3 Skin: normal color, warm/dry Progress/Results/Core Measures Suspected Sepsis Recent Fever Within 48 Hours: No Infection Criteria Present: None New/Unexplained Altered Menta: No Sepsis Screen: No Definite Risk SIRS Temperature: Pulse: 90 Respiratory Rate: 16 Blood Pressure 133 /116 Mean: 122 Results/Orders My Orders Orders - KAYLIE COTTER MD Albuterol/Ipra Inhalation Soln (Duoneb I (04/20/19 14:19) Ed Iv/Invasive Line Start (04/20/19 14:24) O2 (04/20/19 14:24) Monitor-Rhythm Ecg Trace Only (04/20/19 14:24) Albuterol Pre-Mix Nebs (Rt) (Proventil (04/20/19 14:24) Albuterol/Ipra Inhalation Soln (Duoneb I (04/20/19 14:30) Svn Small Volume Nebulizer (04/20/19 14:24) Svn Small Volume Nebulizer (04/20/19 14:24) Prednisone Tablet (Deltasone Tablet) (04/20/19 14:45) Rx-Albuterol Inhaler (Rx-Proair) (04/20/19 14:45) Rx-Albuterol Inhaler (Rx-Proair) (04/20/19 14:26) Medications Given in ED Current Medications Medications Dose Ordered Sig/Saúl Route Start Time Stop Time Status Last Admin Dose Admin Albuterol Sulfate 2 gm QID PRN IH 04/20/19 14:45 04/20/19 14:47 2 GM Albuterol/ Ipratropium 3 ml ONCE ONCE INH 04/20/19 14:30 04/20/19 14:31 DC 04/20/19 14:27 3 ML Vital Signs/I&O 04/20/19 04/20/19 14:23 14:48 Pulse 90 Resp 16 B/P (MAP) 133/116 (122) Pulse Ox 97 97 O2 Delivery Room Air Room Air Capillary Refill : Less Than 3 Seconds Blood Pressure Mean: 122 Progress Note : Progress Note Seen and evaluated. DuoNeb ordered. This did significantly help. Prednisone 40 mg by mouth and albuterol neb.. Albuterol inhaler given. Overall improved. D ischarged home with return precautions. Patient verbalize understanding instructions and agreement with plan. Departure Impression Primary Impression: Asthma attack Qualified Codes: J45.21 - Mild intermittent asthma with (acute) exacerbation Disposition: 01 HOME, SELF-CARE Condition: Improved Departure-Patient Inst. Decision time for Depature: 15:42 Referrals: EDGAR SIMON (PCP/Family) Primary Care Physician Patient Instructions: Asthma, Adult (DC) Add. Discharge Instructions: All discharge instructions reviewed with patient and/or family. Voiced understanding. Take medications as directed. Follow-up with your doctor this week for recheck and further evaluation as needed. Return for worse pain, fever, breathing problems, weakness or other concerns as needed. Scripts Prednisone (Prednisone) 20 Mg Tab 40 MG PO DAILY, #6 TAB 0 Refills Prov: KAYLIE COTTER MD 04/20/19 KAYLIE COTTER MD Apr 20, 2019 14:35
[2019-04-20] MEDS ORDERED: predniSONE 20 MG TAB PO ONE (14:45)
[2019-04-20] MEDS ORDERED: RX-ALBUTEROL INHALER (PROAIR) 8.5 GM IH PRN (14:45)
[2019-04-20] MEDS ORDERED: PRD20T PO (15:43)
[2019-04-20 15:47] VITALS: BP 125/89
== END 2019-04-20 15:47 | disposition home or self-care (01) ==
LOC: EDUNIT# 14:20 → ER 14:21
DX: J45.901 Unspecified asthma with (acute) exacerbation (principal); I10 Essential (primary) hypertension; F41.9 Anxiety disorder, unspecified; F32.9 Major depressive disorder, single episode, unspecified; F17.210 Nicotine dependence, cigarettes, uncomplicated; Z91.14 Patient's other noncompliance with medication regimen; Z88.5 Allergy status to narcotic agent; Z88.0 Allergy status to penicillin; Z88.4 Allergy status to anesthetic agent; Z90.89 Acquired absence of other organs; Z82.49 Family history of ischemic heart disease and other diseases of the circulatory system
CPT/HCPCS: 94640

== ENCOUNTER 2019-04-27 14:30 | Emergency (ER) | payer MEDICAID ==
[~2019-04-27] VITALS: Ht 152.4 cm; Wt 81.6 kg
[~2019-04-27 14:30] MED LIST changes: +PRD20T PO; -RT-ALBUTEROL/IPRATROPIUM 3 ML (DUONEB) VIAL ONE
[2019-04-27 15:13] LABS: BASOPHILS % (AUTO) 0 % (0-10); EOSINOPHILS # (AUTO) 0.4 10^3/uL (0.0-0.3); EOSINOPHILS % (AUTO) 4 % (0-10); HEMATOCRIT 39 % (35-52); HEMOGLOBIN 12.9 G/DL (11.5-16.0); LYMPHOCYTES # (AUTO) 3.7 X 10^3 (1.0-4.0); LYMPHOCYTES % (AUTO) 29 % (12-44); MEAN CORPUSCULAR HEMOGLOBIN 27 PG (25-34); MEAN CORPUSCULAR HGB CONC 33 G/DL (32-36); MEAN CORPUSCULAR VOLUME 83 FL (80-99); MEAN PLATELET VOLUME 11.6 FL (7.4-10.4); MONOCYTES % (AUTO) 8 % (0-12); NEUTROPHILS # (AUTO) 7.5 X 10^3 (1.8-7.8); NEUTROPHILS % (AUTO) 59 % (42-75); PLATELET COUNT 317 10^3/uL (130-400); RED CELL DISTRIBUTION WIDTH 16.8 % (10.0-14.5); WHITE BLOOD COUNT 12.7 10^3/uL (4.3-11.0)
[2019-04-27 15:26] LABS: BILIRUBIN,URINE NEGATIVE (NEGATIVE); CLARITY,URINE CLEAR; GLUCOSE, URINE (UA) NEGATIVE (NEGATIVE); KETONES,URINE NEGATIVE (NEGATIVE); LEUKOCYTE ESTERASE ,URINE 1+ (NEGATIVE); NITRITE,URINE NEGATIVE (NEGATIVE); PH,URINE 6 (5-9); PROTEIN,URINE NEGATIVE (NEGATIVE); UROBILINOGEN,URINE NORMAL (NORMAL)
[2019-04-27 15:27] LABS: BACTERIA,URINE FEW /HPF; COLOR,URINE YELLOW; WBC,URINE 0-2 /HPF
[2019-04-27 15:28] LABS: AMPHETAMINE SCREEN, URINE NEGATIVE (NEGATIVE); BARBITURATE SCREEN URINE NEGATIVE (NEGATIVE); BENZODIAZEPINES SCREEN URINE NEGATIVE (NEGATIVE); CANNABINOID SCREEN, URINE NEGATIVE (NEGATIVE); COCAINE SCREEN URINE NEGATIVE (NEGATIVE); METHADONE STAT NEGATIVE (NEGATIVE); METHAMPHETAMINE SCREEN URINE S NEGATIVE (NEGATIVE); OPIATE SCREEN URINE NEGATIVE (NEGATIVE); OXYCODONE STAT NEGATIVE (NEGATIVE); PROPOXYPHENE STAT NEGATIVE (NEGATIVE); TRICYCLIC ANTIDEPRESSANTS SCRE NEGATIVE (NEGATIVE)
[2019-04-27 15:33] LABS: ALANINE AMINOTRANSFERASE 23 U/L (0-55); ALKALINE PHOSPHATASE 78 U/L (40-136); BILIRUBIN,TOTAL 0.3 MG/DL (0.1-1.0); BUN/CREATININE RATIO 13; CALCIUM 9.3 MG/DL (8.5-10.1); CARBON DIOXIDE 19 MMOL/L (21-32); CHLORIDE 108 MMOL/L (98-107); CREATININE SERUM 0.84 MG/DL (0.60-1.30); GFR ESTIMATED > 60; GLUCOSE 100 MG/DL (70-105); MAGNESIUM 2.2 MG/DL (1.8-2.4); POTASSIUM 3.8 MMOL/L (3.6-5.0); SODIUM 138 MMOL/L (135-145); TOTAL PROTEIN 6.7 GM/DL (6.4-8.2)
[2019-04-27 15:53] LABS: TSH (THYROID ANALYZER) 1.01 UIU/ML (0.35-4.94)
--- NOTE | 2019-04-27 16:10 | ED General ---
General Chief Complaint: Neurological Problems Stated Complaint: POSSIBLE SEIZURE ACTIVITY Nursing Triage Note: PT STATES HAVING "TWITICHING" EPISODES ON AND OFF FOR 2 MONTHS. PT STATES THAT THEY HAVE BEEN CONSISTENT SINCE YESTERDAY. PT STATES SHE REMEMBMERS EVERYTHING THAT HAPPENS DURING THESE EPISODES BUT DOES NOT TALK BECAUSE SHE STATES SHE "HURTS TOO MUCH" PT STATES HISTORY OF DAILY HYPERTENSION AND BRAIN ANURESYMS. PT HAD A STRESSFULL EVENT YESTERDAY AND STATES THAT STRESS USUALLY INCREASES THESE "TWITCHING" EVENTS. PT DENIES SOA OR CHEST PAIN. PT DENIES FALLING OR HITTING HEAD. Nursing Sepsis Screen: No Definite Risk Source of Information: Patient, Old Records Exam Limitations: No Limitations History of Present Illness Date Seen by Provider: Apr 27, 2019 Time Seen by Provider: 14:50 Initial Comments This 38-year-old woman presents to the emergency room with complaints of exacerbation of hypertension, headache, and tremoring or convulsive movements. These episodes have been occurring for the past 2 months. She has had frequent recurring episodes since a stressful incident last night in which her teen daughter discovered she was . Patient stays conscious and alert during these episodes. She states sometimes she feels like she wants to speak but cannot during the episodes. She has been referred to neurologist in [place]. She reports multiple imaging studies have been done including imaging stefanie dies at after the onset of these symptoms 2 months ago. She has follow-up pending. She started hydralazine recently but has not taken any today. Dosing was confirmed by calling [facility] pharmacy. She denies any drug or alcohol use. Allergies and Home Medications Allergies Coded Allergies: tramadol (Verified Allergy, Intermediate, RASH, 10/18/15) Penicillins (Unverified Allergy, Unknown, 06/22/14) as a child, pt. verbalizes she can take Z-Curly, etc Procaine HCl (Unverified Allergy, Unknown, 06/22/14) codeine (Unverified Allergy, Unknown, 10/18/15) HAD CHILD Home Medications Albuterol Sulfate 1 Puff Puff, 2 PUFF INH Q4H PRN for SHORTNESS OF BREATH, (Reported) Albuterol Sulfate 2.5 Mg/3 Ml Vial.neb, 2.5 MG NEB Q4H PRN for SHORTNESS OF BREATH, (Reported) Amlodipine Besylate 5 Mg Tablet, 5 MG PO DAILY, (Reported) Budesonide/Formoterol Fumarate 10.2 Gm Hfa.aer.ad, 2 PUFF INH BID PRN for WHEEZING, (Reported) Buspirone HCl 10 Mg Tablet, 10 MG PO TID, (Reported) Diclofenac Sod 100 Mg Tab, 100 MG PO HS, (Reported) Duloxetine HCl 60 Mg Capsule.dr, 120 MG PO DAILY, (Reported) TAKES 2 (60MG) CAPSULES Ibuprofen 200 Mg Tablet, 800 MG PO TID PRN for PAIN-MILD, (Reported) Metoprolol Tartrate 25 Mg Tablet, 25 MG PO BID, (Reported) Prednisone 20 Mg Tab, 40 MG PO DAILY Prescribed by: KAYLIE COTTER on 04/20/19 8393 Patient Home Medication List Home Medication List Reviewed: Yes Review of Systems Review of Systems Constitutional: no symptoms reported EENTM: no symptoms reported Respiratory: no symptoms reported Cardiovascular: see HPI Gastrointestinal: no symptoms reported Genitourinary: no symptoms reported Musculoskeletal: no symptoms reported Skin: no symptoms reported Psychiatric/Neurological: See HPI Hematologic/Lymphatic: No Symptoms Reported Past Qlcspcr-Towqim-Costcd Hx Past Med/Social Hx: Reviewed and Corrections made Patient Social History Alcohol Use: Denies Use Recreational Drug Use: No Type Used: Cigarettes Recent Foreign Travel: No Contact w/Someone Who Travel: No Recent Infectious Disease Expo: No Recent Hopitalizations: No Physical Abuse: No Sexual Abuse: No Mistreated: No Fear: No Immunizations Up To Date Tetanus Booster (TDap): Unknown PED Vaccines UTD: No Date of Pneumonia Vaccine: Jun 01, 2014 Date of Influenza Vaccine: Aug 02, 2018 Seasonal Allergies Seasonal Allergies: No Past Medical History Surgeries: Yes (METAL PLATE RIGHT ARM, D&C) Section, Orthopedic, Tonsillectomy Respiratory: Yes Asthma Cardiac: Yes Hypertension, Syncope Neurological: Yes Reproductive Disorders: No Female Reproductive Disorders: Ovarian Cyst Sexually Transmitted Disease: No HIV/AIDS: No Genitourinary: No Gastrointestinal: Yes Gall Bladder Disease Musculoskeletal: No Endocrine: Yes (vitamin D deficiency) HEENT: No Loss of Vision: Bilateral Hearing Impairment: Denies Cancer: No Psychosocial: Yes Anxiety, Depression Integumentary: No Blood Disorders: No Adverse Reaction/Blood Tranf: No Family Medical History Cardiovascular disease MATERNAL GRANDMOTHER PATERNAL GRANDMOTHER Diabetes mellitus MATERNAL GRANDMOTHER FH: cancer MATERNAL GRANDMOTHER Hypertension MATERNAL GRANDMOTHER MATERNAL GRANDFATHER PATERNAL GRANDMOTHER PATERNAL GRANDFATHER Physical Exam Vital Signs Vital Signs - First Documented 04/27/19 14:42 Temp 97.6 Pulse 104 Resp 18 B/P (MAP) 160/118 (132) Pulse Ox 98 O2 Delivery Room Air Capillary Refill : Less Than 3 Seconds Height, Weight, BMI Height: 5'0" Weight: 180lbs. 0.0oz. [id number]; 31.21 BMI Method:Stated General Appearance: No Apparent Distress, WD/WN HEENT: PERRL/EOMI, Normal ENT Inspection, Pharynx Normal Neck: Normal Inspection Respiratory: Lungs Clear, Normal Breath Sounds, No Accessory Muscle Use, No Respiratory Distress Cardiovascular: Regular Rate, Rhythm, No Edema, No Murmur Extremity: Normal Inspection, No Pedal Edema Neurologic/Psychiatric: Alert, Oriented x3, No Motor/Sensory Deficits, Normal Mood/Affect, web consultant II-XII Norm as Tested Skin: Normal Color, Warm/Dry Progress/Results/Core Measures Suspected Sepsis Recent Fever Within 48 Hours: No Infection Criteria Present: None New/Unexplained Altered Menta: No Sepsis Screen: No Definite Risk SIRS Temperature:97.6 Pulse: 104 Respiratory Rate: 18 Laboratory Tests 04/27/19 15:07: White Blood Count 12.7H Blood Pressure 160 /118 Mean: 132 Laboratory Tests 04/27/19 15:07: Creatinine 0.84, Platelet Count 317, Total Bilirubin 0.3 Results/Orders Lab Results Laboratory Tests Test 04/27/19 15:07 04/27/19 15:09 Range/Units White Blood Count 12.7 H 4.3-11.0 10^3/uL Red Blood Count 4.72 4.35-5.85 10^6/uL Hemoglobin 12.9 11.5-16.0 G/DL Hematocrit 39 35-52 % Mean Corpuscular Volume 83 80-99 FL Mean Corpuscular Hemoglobin 27 25-34 PG Mean Corpuscular Hemoglobin Concent 33 32-36 G/DL Red Cell Distribution Width 16.8 H 10.0-14.5 % Platelet Count 317 130-400 10^3/uL Mean Platelet Volume 11.6 H 7.4-10.4 FL Neutrophils (%) (Auto) 59 42-75 % Lymphocytes (%) (Auto) 29 12-44 % Monocytes (%) (Auto) 8 0-12 % Eosinophils (%) (Auto) 4 0-10 % Basophils (%) (Auto) 0 0-10 % Neutrophils # (Auto) 7.5 1.8-7.8 X 10^3 Lymphocytes # (Auto) 3.7 1.0-4.0 X 10^3 Monocytes # (Auto) 1.0 0.0-1.0 X 10^3 Eosinophils # (Auto) 0.4 H 0.0-0.3 10^3/uL Basophils # (Auto) 0.0 0.0-0.1 10^3/uL Sodium Level 138 135-145 MMOL/L Potassium Level 3.8 3.6-5.0 MMOL/L Chloride Level 108 H 98-107 MMOL/L Carbon Dioxide Level 19 L 21-32 MMOL/L Anion Gap 11 5-14 MMOL/L Blood Urea Nitrogen 11 7-18 MG/DL Creatinine 0.84 0.60-1.30 MG/DL Estimat Glomerular Filtration Rate > 60 BUN/Creatinine Ratio 13 Glucose Level 100 70-105 MG/DL Calcium Level 9.3 8.5-10.1 MG/DL Corrected Calcium 9.3 8.5-10.1 MG/DL Magnesium Level 2.2 1.8-2.4 MG/DL Total Bilirubin 0.3 0.1-1.0 MG/DL Aspartate Amino Transf (AST/SGOT) 16 5-34 U/L Alanine Aminotransferase (ALT/SGPT) 23 0-55 U/L Alkaline Phosphatase 78 40-136 U/L Total Protein 6.7 6.4-8.2 GM/DL Albumin 4.0 3.2-4.5 GM/DL TSH Walsh Testing 1.01 0.35-4.94 UIU/ML Urine Color YELLOW Urine Clarity CLEAR Urine pH 6 5-9 Urine Specific [place] 1.020 1.016-1.022 Urine Protein NEGATIVE NEGATIVE Urine Glucose (UA) NEGATIVE NEGATIVE Urine Ketones NEGATIVE NEGATIVE Urine Nitrite NEGATIVE NEGATIVE Urine Bilirubin NEGATIVE NEGATIVE Urine Urobilinogen NORMAL NORMAL MG/DL Urine Leukocyte Esterase 1+ H NEGATIVE Urine RBC (Auto) NEGATIVE NEGATIVE Urine RBC NONE /HPF Urine WBC 0-2 /HPF Urine Squamous Epithelial Cells 10-25 H /HPF Urine Crystals NONE /LPF Urine Bacteria FEW H /HPF Urine Casts NONE /LPF Urine Mucus SMALL H /LPF Urine Culture Indicated NO Urine Opiates Screen NEGATIVE NEGATIVE Urine Oxycodone Screen NEGATIVE NEGATIVE Urine Methadone Screen NEGATIVE NEGATIVE Urine Propoxyphene Screen NEGATIVE NEGATIVE Urine Barbiturates Screen NEGATIVE NEGATIVE Ur Tricyclic Antidepressants Screen NEGATIVE NEGATIVE Urine Phencyclidine Screen NEGATIVE NEGATIVE Urine Amphetamines Screen NEGATIVE NEGATIVE Urine Methamphetamines Screen NEGATIVE NEGATIVE Urine Benzodiazepines Screen NEGATIVE NEGATIVE Urine Cocaine Screen NEGATIVE NEGATIVE Urine Cannabinoids Screen NEGATIVE NEGATIVE My Orders Orders - PERNELL MARS MD Cbc With Automated Diff (04/27/19 14:59) Comprehensive Metabolic Panel (04/27/19 14:59) Magnesium (04/27/19 14:59) Ed Iv/Invasive Line Start (04/27/19 14:59) Thyroid Analyzer (04/27/19 14:59) Drug Screen Stat (Urine) (04/27/19 14:59) Ua Culture If Indicated (04/27/19 14:59) Ketorolac Injection (Toradol Injection) (04/27/19 16:15) Medications Given in ED Current Medications Medications Dose Ordered Sig/Saúl Route Start Time Stop Time Status Last Admin Dose Admin Ketorolac Tromethamine 15 mg ONCE ONCE IVP 04/27/19 16:15 04/27/19 16:16 DC 04/27/19 16:07 15 MG Vital Signs/I&O 04/27/19 14:42 Temp 97.6 Pulse 104 Resp 18 B/P (MAP) 160/118 (132) Pulse Ox 98 O2 Delivery Room Air Capillary Refill : Less Than 3 Seconds Blood Pressure Mean: 132 Progress Note : Progress Note Patient had some dystonic-type movements that were low in amplitude but diminished with time. During my neurologic exam she had a convulsive episode primarily involving the left leg and then traveling up to other parts of her body. This lasted a very brief period of time. Basic lab evaluation was performed and was unremarkable. Patient's blood pressure trended down to around 150/100. She was advised to return home and start hydralazine as prescribed. She has a history of severe vitamin D deficiency and I advised her to have her vitamin D level screened again as this may be a trigger for her headaches. I advised her to avoid any stimulants such as caffeine which she has been taking with her Excedrin. I also warned her that steroids can sometimes cause exacerbations of hypertension as she recently completed a course of prednisone. She was given a dose of Toradol for her headache before departure. Departure Impression Primary Impression: Essential hypertension Additional Impressions: Acute headache Qualified Codes: R51 - Headache Tremor Disposition: 01 HOME, SELF-CARE Condition: Improved Departure-Patient Inst. Decision time for Depature: 16:00 Referrals: EDGAR SIMON (PCP/Family) Primary Care Physician Patient Instructions: High Blood Pressure (DC) Add. Discharge Instructions: Resume hydralazine as prescribed. For headaches try taking ibuprofen up to 600 mg every 6 hours as needed and/or Tylenol (acetaminophen) up to 1000 mg every 6 hours as needed. Keep your follow-up appointments with neurology. Follow-up with your primary care provider as soon as possible. Discuss screening for vitamin D deficiency as this may predispose you to headaches. Also, avoid stimulants that may increase her blood pressure such as caffeine, decongestants medications, energy drinks, diet supplements, etc. Prednisone use may also cause a spike in blood pressure. Please use steroids with caution in the future. Return to care if you have worsening symptoms. All discharge instructions reviewed with patient and/or family. Voiced understanding. PERNELL MARS MD Apr 27, 2019 16:10
[2019-04-27] MEDS ORDERED: KETOROLAC 30 MG/ML VIAL IVP ONE (16:15)
[2019-04-27 16:34] VITALS: BP 160/118
== END 2019-04-27 16:35 | disposition home or self-care (01) ==
LOC: EDUNIT# 14:30 → ER 14:32
DX: R25.1 Tremor, unspecified (principal); I10 Essential (primary) hypertension; R51 Headache; J45.909 Unspecified asthma, uncomplicated; F41.9 Anxiety disorder, unspecified; F32.9 Major depressive disorder, single episode, unspecified; Z91.14 Patient's other noncompliance with medication regimen; Z88.5 Allergy status to narcotic agent; Z88.0 Allergy status to penicillin; Z88.8 Allergy status to other drugs, medicaments and biological substances; Z90.89 Acquired absence of other organs; Z82.49 Family history of ischemic heart disease and other diseases of the circulatory system
CPT/HCPCS: 36415; 80053; 80306; 81000; 83735; 84443; 85025

== ENCOUNTER 2019-07-29 19:25 | Emergency (ER) | payer MEDICAID ==
[~2019-07-29] VITALS: Ht 152.4 cm; Wt 84.5 kg
[~2019-07-29 19:25] MED LIST changes: -DULO60CA58 PO; +DULO60CA59 PO
[2019-07-29] MEDS ORDERED: HYDR-3922 PO (19:45)
[2019-07-29] MEDS ORDERED: PREG50CA2 (19:45)
[2019-07-29] MEDS ORDERED: diphenhydrAMINE 50 MG/ML INJ (BENADRYL) IVP ONE (20:15)
[2019-07-29] MEDS ORDERED: diphenhydrAMINE 50 MG/ML INJ (BENADRYL) IM ONE (20:15)
[2019-07-29] MEDS ORDERED: PROCHLORPERAZINE 10 MG/2ML INJ (COMPAZINE) IM ONE (20:15)
[2019-07-29] MEDS ORDERED: KETOROLAC 60 MG/2 ML VIAL IM ONE (20:15)
--- NOTE | 2019-07-29 20:18 | ED General ---
General Chief Complaint: Cough/Cold/Flu Symptoms Stated Complaint: HEADACHE/L EAR PAIN/VOMITING Nursing Triage Note: left ear pain, sore throat, vomitting today. Nursing Sepsis Screen: No Definite Risk Source of Information: Patient Exam Limitations: No Limitations History of Present Illness Date Seen by Provider: Jul 29, 2019 Time Seen by Provider: 20:00 Initial Comments 38-year-old female who presents to the emergency room with complaints of a migraine that started this morning with vomiting. She reports that 1 hour prior to arrival she started to have left ear pain and a sore throat. Denies fevers. She reports that she does get migraines frequently and these symptoms are very similar. Timing/Duration: 1 Day Associated Systoms: Headaches, Nausea/Vomiting Allergies and Home Medications Allergies Coded Allergies: tramadol (Verified Allergy, Intermediate, RASH, 10/18/15) Penicillins (Unverified Allergy, Unknown, 06/22/14) as a child, pt. verbalizes she can take Z-Curly, etc Procaine HCl (Unverified Allergy, Unknown, 06/22/14) codeine (Unverified Allergy, Unknown, 10/18/15) HAD CHILD Home Medications Albuterol Sulfate 1 Puff Puff, 2 PUFF INH Q4H PRN for SHORTNESS OF BREATH, (Reported) Budesonide/Formoterol Fumarate 10.2 Gm Hfa.aer.ad, 2 PUFF INH BID PRN for WHEEZING, (Reported) Duloxetine HCl 60 Mg Capsule.dr, 120 MG PO DAILY, (Reported) TAKES 2 (60MG) CAPSULES Patient Home Medication List Home Medication List Reviewed: Yes Review of Systems Review of Systems Constitutional: see HPI; No chills, No fever EENTM: see HPI, ear pain (left ear pain) Gastrointestinal: see HPI, nausea, vomiting Psychiatric/Neurological: See HPI, Headache Past Atldtzq-Vxqzax-Idtqly Hx Past Med/Social Hx: Reviewed Nursing Past Med/Soc Hx Patient Social History Alcohol Use: Denies Use Recreational Drug Use: No Smoking Status: Current Everyday Smoker Type Used: Cigarettes Recent Foreign Travel: No Contact w/Someone Who Travel: No Recent Infectious Disease Expo: No Recent Hopitalizations: No Physical Abuse: No Sexual Abuse: No Mistreated: No Fear: No Immunizations Up To Date Tetanus Booster (TDap): Unknown PED Vaccines UTD: No Date of Pneumonia Vaccine: Jun 01, 2014 Date of Influenza Vaccine: Aug 02, 2018 Seasonal Allergies Seasonal Allergies: No Past Medical History Surgeries: Yes (METAL PLATE RIGHT ARM, D&C) Section, Gallbladder, Orthopedic, Tonsillectomy Respiratory: Yes Asthma Cardiac: Yes Aneurysm, Hypertension, Syncope Neurological: Yes : No Reproductive Disorders: No Female Reproductive Disorders: Ovarian Cyst [employer]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 Sexually Transmitted Disease: No HIV/AIDS: No Genitourinary: No Gastrointestinal: Yes Gall Bladder Disease Musculoskeletal: No Endocrine: Yes (vitamin D deficiency) HEENT: No Loss of Vision: Bilateral Hearing Impairment: Denies Cancer: No Psychosocial: Yes Anxiety, Depression Integumentary: No Blood Disorders: No Adverse Reaction/Blood Tranf: No Family Medical History Reviewed Nursing Family Hx Cardiovascular disease MATERNAL GRANDMOTHER PATERNAL GRANDMOTHER Diabetes mellitus MATERNAL GRANDMOTHER FH: cancer MATERNAL GRANDMOTHER Hypertension MATERNAL GRANDMOTHER MATERNAL GRANDFATHER PATERNAL GRANDMOTHER PATERNAL GRANDFATHER Physical Exam Vital Signs Vital Signs - First Documented 07/29/19 19:35 Temp 36.9 Pulse 104 Resp 18 B/P (MAP) 127/62 (83) Pulse Ox 96 O2 Delivery Room Air Capillary Refill : Less Than 3 Seconds Height, Weight, BMI Height: 5'0" Weight: 180lbs. 0.0oz. [id number]; 36.00 BMI Method:Stated General Appearance: No Apparent Distress, WD/WN HEENT: PERRL/EOMI, TMs Normal, Normal ENT Inspection, Pharynx Normal Respiratory: Chest Non Tender, Lungs Clear, Normal Breath Sounds, No Accessory Muscle Use, No Respiratory Distress Cardiovascular: Regular Rate, Rhythm, No Edema, No Gallop, No JVD, No Murmur, Normal Peripheral Pulses Extremity: Normal Capillary Refill Neurologic/Psychiatric: Alert, Oriented x3, Normal Mood/Affect Skin: Normal Color, Warm/Dry Progress/Results/Core Measures Suspected Sepsis Recent Fever Within 48 Hours: No Infection Criteria Present: None New/Unexplained Altered Menta: No Sepsis Screen: No Definite Risk SIRS Temperature: Pulse: 104 Respiratory Rate: 18 Blood Pressure 127 /62 Mean: 83 Results/Orders My Orders Orders - BERNOT,LUIS Ketorolac Injection (Toradol Injection) (07/29/19 20:15) Prochlorperazine Injection (Compazine In (07/29/19 20:15) Diphenhydramine Injection (Benadryl Inje (07/29/19 20:15) Medications Given in ED Current Medications Medications Dose Ordered Sig/Saúl Route Start Time Stop Time Status Last Admin Dose Admin Diphenhydramine HCl 50 mg ONCE ONCE IM 07/29/19 20:15 07/29/19 20:16 DC 07/29/19 20:10 50 MG Ketorolac Tromethamine 60 mg ONCE ONCE IM 07/29/19 20:15 07/29/19 20:16 DC 07/29/19 20:09 60 MG Prochlorperazine Edisylate 10 mg ONCE ONCE IM 07/29/19 20:15 07/29/19 20:16 DC 07/29/19 20:09 10 MG Vital Signs/I&O 07/29/19 07/29/19 07/29/19 19:35 20:09 20:30 Temp 36.9 36.9 36.9 Pulse 104 104 Resp 18 18 B/P (MAP) 127/62 (83) 127/62 (83) Pulse Ox 96 96 O2 Delivery Room Air Capillary Refill : Less Than 3 Seconds Blood Pressure Mean: 83 POS Progress Note : Time: 20:33 Progress Note Patient reports improving symptoms at this time. She wishes to go home so that she can rest. She agrees with plan of care, plans for discharge, return precautions were given. Departure Impression Primary Impression: Migraine Disposition: 01 HOME, SELF-CARE Condition: Stable/Unchanged Departure-Patient Inst. Decision time for Depature: 20:16 Referrals: NO,LOCAL PHYSICIAN (PCP/Family) Primary Care Physician Patient Instructions: Migraine Headache (DC) Add. Discharge Instructions: Drink plenty of fluids. You may use ibuprofen and Tylenol as directed by the bottle for additional pain relief. Follow-up with primary care as needed. Return back to the emergency room for worsening symptoms or concerns as needed. All discharge instructions reviewed with patient and/or family. Voiced understanding. LUIS LIVINGSTON Jul 29, 2019 20:18 POS
[2019-07-29 20:30] VITALS: BP 127/62
== END 2019-07-29 20:33 | disposition home or self-care (01) ==
LOC: EDUNIT# 19:25 → ER 19:26
DX: G43.909 Migraine, unspecified, not intractable, without status migrainosus (principal); I10 Essential (primary) hypertension; J45.909 Unspecified asthma, uncomplicated; F41.9 Anxiety disorder, unspecified; F32.9 Major depressive disorder, single episode, unspecified; F17.210 Nicotine dependence, cigarettes, uncomplicated; Z98.51 Tubal ligation status; Z90.89 Acquired absence of other organs; Z88.5 Allergy status to narcotic agent; Z88.0 Allergy status to penicillin; Z88.8 Allergy status to other drugs, medicaments and biological substances; Z82.49 Family history of ischemic heart disease and other diseases of the circulatory system
CPT/HCPCS: 96372; 99284

== ENCOUNTER 2019-08-14 12:42 | Emergency (ER) | payer MEDICAID ==
[~2019-08-14] VITALS: Ht 152.4 cm; Wt 83.9 kg
[~2019-08-14 12:42] MED LIST changes: +HYDR-3922 PO; +PREG50CA2
[2019-08-14] MEDS ORDERED: NS IV 1000 ML 1,000 ML IV SCH (13:00)
[2019-08-14] MEDS ORDERED: KETOROLAC 30 MG/ML VIAL IVP ONE (13:00)
--- NOTE | 2019-08-14 13:00 | ED Abdominal Pain ---
General Chief Complaint: Abdominal/GI Problems Stated Complaint: R SIDE PAIN Source of Information: Patient Exam Limitations: No Limitations History of Present Illness Date Seen by Provider: Aug 14, 2019 Time Seen by Provider: 12:58 Initial Comments 2 ER with a sharp stabbing left lower quadrant abdominal pain constant since last night waxing and waning in intensity. She reports a fever up to 102 last night, no nausea vomiting or bowel changes. No vaginal discharge. Timing/Duration: 1-2 Days Severity/Quality: Moderate Location: LLQ Radiation: No Radiation Activities at Onset: None Associated Symptoms: Fever/Chills Allergies and Home Medications Allergies Coded Allergies: tramadol (Verified Allergy, Intermediate, RASH, 10/18/15) Penicillins (Unverified Allergy, Unknown, 06/22/14) as a child, pt. verbalizes she can take Z-Curly, etc Procaine HCl (Unverified Allergy, Unknown, 06/22/14) codeine (Unverified Allergy, Unknown, 10/18/15) HAD CHILD Home Medications Albuterol Sulfate 1 Puff Puff, 2 PUFF INH Q4H PRN for SHORTNESS OF BREATH, (Reported) Budesonide/Formoterol Fumarate 10.2 Gm Hfa.aer.ad, 2 PUFF INH BID PRN for WHEEZING, (Reported) Cefuroxime Axetil 500 Mg Tablet, 500 MG PO BID Prescribed by: SUYAPA MOHAN on 08/14/19 1322 Duloxetine HCl 60 Mg Capsule.dr, 120 MG PO DAILY, (Reported) TAKES 2 (60MG) CAPSULES Patient Home Medication List Home Medication List Reviewed: Yes Review of Systems Review of Systems Constitutional: see HPI, fever EENTM: No Symptoms Reported Respiratory: No Symptoms Reported Cardiovascular: No Symptoms Reported Gastrointestinal: See HPI, Abdominal Pain Genitourinary: No Symptoms Reported Musculoskeletal: no symptoms reported Skin: no symptoms reported Psychiatric/Neurological: No Symptoms Reported Endocrine: No Symptoms Reported Past Ccjpguw-Cunyni-Wpehyf Hx Patient Social History Type Used: Cigarettes Recent Foreign Travel: No Contact w/Someone Who Travel: No Recent Hopitalizations: No Immunizations Up To Date Tetanus Booster (TDap): Unknown PED Vaccines UTD: No Date of Pneumonia Vaccine: Jun 01, 2014 Date of Influenza Vaccine: Aug 02, 2018 Seasonal Allergies Seasonal Allergies: No Past Medical History Surgeries: Yes (METAL PLATE RIGHT ARM, D&C) Section, Gallbladder, Orthopedic, Tonsillectomy Respiratory: Yes Asthma Cardiac: Yes Aneurysm, Hypertension, Syncope Neurological: Yes Reproductive Disorders: No 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 Sexually Transmitted Disease: No HIV/AIDS: No Genitourinary: No Gastrointestinal: Yes Gall Bladder Disease Musculoskeletal: No Endocrine: Yes (vitamin D deficiency) HEENT: No Loss of Vision: Bilateral Hearing Impairment: Denies Cancer: No Psychosocial: Yes Anxiety, Depression Integumentary: No Blood Disorders: No Adverse Reaction/Blood Tranf: No Family Medical History Cardiovascular disease MATERNAL GRANDMOTHER PATERNAL GRANDMOTHER Diabetes mellitus MATERNAL GRANDMOTHER FH: cancer MATERNAL GRANDMOTHER Hypertension MATERNAL GRANDMOTHER MATERNAL GRANDFATHER PATERNAL GRANDMOTHER PATERNAL GRANDFATHER Physical Exam Vital Signs Vital Signs - First Documented 08/14/19 12:50 Temp 36.6 Pulse 115 Resp 16 B/P (MAP) 157/108 (124) Pulse Ox 99 O2 Delivery Room Air Capillary Refill : Height/Weight/BMI Height: 5'0" Weight: 180lbs. 0.0oz. 81.996213wq; 36.00 BMI Method:Stated General Appearance: WD/WN, no apparent distress HEENT: PERRL/EOMI, normal ENT inspection, other (Can flex chin to chest, no nuchal rigidity. ) Respiratory: no respiratory distress, no accessory muscle use Cardiovascular: tachycardia Gastrointestinal: normal bowel sounds, soft, rebound, tenderness Neurologic/Psychiatric: alert, normal mood/affect, oriented x 3 Skin: normal color, warm/dry Progress/Results/Core Measures Results/Orders Lab Results Laboratory Tests Test 08/14/19 12:53 08/14/19 13:00 Range/Units Urine Color YELLOW Urine Clarity SL CLOUDY Urine pH 6.0 5-9 Urine Specific [place] 1.020 1.016-1.022 Urine Protein 1+ H NEGATIVE Urine Glucose (UA) NEGATIVE NEGATIVE Urine Ketones NEGATIVE NEGATIVE Urine Nitrite NEGATIVE NEGATIVE Urine Bilirubin NEGATIVE NEGATIVE Urine Urobilinogen 0.2 < = 1.0 MG/DL Urine Leukocyte Esterase 1+ H NEGATIVE Urine RBC (Auto) TRACE-I NEGATIVE Urine RBC 5-10 H /HPF Urine WBC 10-25 H /HPF Urine Squamous Epithelial Cells 10-25 H /HPF Urine Crystals NONE /LPF Urine Bacteria MODERATE H /HPF Urine Casts NONE /LPF Urine Mucus NEGATIVE /LPF Urine Culture Indicated YES White Blood Count 12.5 H 4.3-11.0 10^3/uL Red Blood Count 5.01 4.35-5.85 10^6/uL Hemoglobin 13.4 11.5-16.0 G/DL Hematocrit 41 35-52 % Mean Corpuscular Volume 82 80-99 FL Mean Corpuscular Hemoglobin 27 25-34 PG Mean Corpuscular Hemoglobin Concent 33 32-36 G/DL Red Cell Distribution Width 16.8 H 10.0-14.5 % Platelet Count 316 130-400 10^3/uL Mean Platelet Volume 12.0 H 7.4-10.4 FL Neutrophils (%) (Auto) 64 42-75 % Lymphocytes (%) (Auto) 26 12-44 % Monocytes (%) (Auto) 8 0-12 % Eosinophils (%) (Auto) 2 0-10 % Basophils (%) (Auto) 0 0-10 % Neutrophils # (Auto) 8.0 H 1.8-7.8 X 10^3 Lymphocytes # (Auto) 3.2 1.0-4.0 X 10^3 Monocytes # (Auto) 1.0 0.0-1.0 X 10^3 Eosinophils # (Auto) 0.3 0.0-0.3 10^3/uL Basophils # (Auto) 0.0 0.0-0.1 10^3/uL Sodium Level 141 135-145 MMOL/L Potassium Level 3.6 3.6-5.0 MMOL/L Chloride Level 107 98-107 MMOL/L Carbon Dioxide Level 23 21-32 MMOL/L Anion Gap 11 5-14 MMOL/L Blood Urea Nitrogen 9 7-18 MG/DL Creatinine 0.79 0.60-1.30 MG/DL Estimat Glomerular Filtration Rate > 60 BUN/Creatinine Ratio 11 Glucose Level 89 70-105 MG/DL Calcium Level 9.3 8.5-10.1 MG/DL Corrected Calcium 9.0 8.5-10.1 MG/DL Total Bilirubin 0.4 0.1-1.0 MG/DL Aspartate Amino Transf (AST/SGOT) 11 5-34 U/L Alanine Aminotransferase (ALT/SGPT) 15 0-55 U/L Alkaline Phosphatase 92 40-136 U/L Total Protein 7.3 6.4-8.2 GM/DL Albumin 4.4 3.2-4.5 GM/DL Serum Test, Qualitative NEGATIVE NEGATIVE My Orders Orders - SUYAPA MOHAN SECURITY INSPECTOR Cbc With Automated Diff (08/14/19 12:45) Comprehensive Metabolic Panel (08/14/19 12:45) Hcg,Qualitative Serum (08/14/19 12:45) Ketorolac Injection (Toradol Injection) (08/14/19 13:00) Ns Iv 1000 Ml (Sodium Chloride 0.9%) (08/14/19 13:00) Us Non Ob Pelvis Comp/Transvag (08/14/19 13:00) Ceftriaxone For Iv Use (Rocephin For I (08/14/19 13:30) Medications Given in ED Current Medications Medications Dose Ordered Sig/Saúl Route Start Time Stop Time Status Last Admin Dose Admin Ceftriaxone Sodium 1000 mg/ Sterile Water 10 ml @ 200 mls/hr ONCE ONCE IV 08/14/19 13:30 08/14/19 13:32 DC 08/14/19 13:29 200 MLS/HR Ketorolac Tromethamine 30 mg ONCE ONCE IVP 08/14/19 13:00 08/14/19 13:01 DC 08/14/19 13:04 30 MG Vital Signs/I&O 08/14/19 12:50 Temp 36.6 Pulse 115 Resp 16 B/P (MAP) 157/108 (124) Pulse Ox 99 O2 Delivery Room Air Departure Impression Primary Impression: Urinary tract infection Qualified Codes: N30.01 - Acute cystitis with hematuria Additional Impression: Left ovarian cyst Disposition: HOME, SELF-CARE Condition: Stable Departure-Patient Inst. Decision time for Depature: 13:21 Referrals: EDGAR SIMON (PCP/Family) Primary Care Physician Patient Instructions: Urinary Tract Infection, Adult (DC), Ovarian Cysts Add. Discharge Instructions: 1. Tylenol and ibuprofen for pain control 2. Antibiotics as directed 3. Follow-up with your doctor next week. Return to ER for any lightheadedness severe intolerable pain or other concerns. All discharge instructions reviewed with patient and/or family. Voiced understanding. Scripts Hydrocodone Bit/Acetaminophen (Hydrocodone/Acetaminophen 5/325mg Tablet) 1 Tab Tab 1 EACH PO Q4-6HR PRN for PAIN-MODERATE MDD 10 for 3 Days, #14 TAB Prov: SUYAPA MOHAN APRN 08/14/19 Cefuroxime Axetil (Cefuroxime) 500 Mg Tablet 500 MG PO BID, #10 TAB Prov: SUYAPA MOHAN APRN 08/14/19 Work/School Note: Work Release Form Date Seen in the Emergency Department: Aug 14, 2019 Return to Work: Aug 16, 2019 SUYAPA MOHAN APRN Aug 14, 2019 13:00 POS
[2019-08-14 13:02] LABS: BILIRUBIN,URINE NEGATIVE (NEGATIVE); CLARITY,URINE SL CLOUDY; COLOR,URINE YELLOW; GLUCOSE, URINE (UA) NEGATIVE (NEGATIVE); KETONES,URINE NEGATIVE (NEGATIVE); LEUKOCYTE ESTERASE ,URINE 1+ (NEGATIVE); NITRITE,URINE NEGATIVE (NEGATIVE); PROTEIN,URINE 1+ (NEGATIVE)
[2019-08-14 13:14] LABS: BASOPHILS % (AUTO) 0 % (0-10); EOSINOPHILS # (AUTO) 0.3 10^3/uL (0.0-0.3); EOSINOPHILS % (AUTO) 2 % (0-10); HEMATOCRIT 41 % (35-52); HEMOGLOBIN 13.4 G/DL (11.5-16.0); LYMPHOCYTES # (AUTO) 3.2 X 10^3 (1.0-4.0); LYMPHOCYTES % (AUTO) 26 % (12-44); MEAN CORPUSCULAR HEMOGLOBIN 27 PG (25-34); MEAN CORPUSCULAR HGB CONC 33 G/DL (32-36); MEAN CORPUSCULAR VOLUME 82 FL (80-99); MONOCYTES % (AUTO) 8 % (0-12); NEUTROPHILS % (AUTO) 64 % (42-75); PLATELET COUNT 316 10^3/uL (130-400); RED CELL DISTRIBUTION WIDTH 16.8 % (10.0-14.5); WHITE BLOOD COUNT 12.5 10^3/uL (4.3-11.0)
[2019-08-14 13:18] LABS: BACTERIA,URINE MODERATE /HPF
[2019-08-14] MEDS ORDERED: CEFU500T63 PO (13:22)
[2019-08-14 13:28] LABS: ALANINE AMINOTRANSFERASE 15 U/L (0-55); ALBUMIN 4.4 GM/DL (3.2-4.5); ALKALINE PHOSPHATASE 92 U/L (40-136); BILIRUBIN,TOTAL 0.4 MG/DL (0.1-1.0); BUN/CREATININE RATIO 11; CALCIUM 9.3 MG/DL (8.5-10.1); CARBON DIOXIDE 23 MMOL/L (21-32); CHLORIDE 107 MMOL/L (98-107); CREATININE SERUM 0.79 MG/DL (0.60-1.30); GFR ESTIMATED > 60; GLUCOSE 89 MG/DL (70-105); POTASSIUM 3.6 MMOL/L (3.6-5.0); SODIUM 141 MMOL/L (135-145); TOTAL PROTEIN 7.3 GM/DL (6.4-8.2)
[2019-08-14] MEDS ORDERED: cefTRIAXone FOR IV USE 1,000 MG in WATER (STERILE) FOR INJECTION 10 ML IV ONE (13:30)
[2019-08-14] MEDS ORDERED: ACHD5005 PO (14:44)
[2019-08-14 14:55] VITALS: BP 134/104
--- NOTE | 2019-08-14 15:07 | Diagnostic Imaging Report ---
PROCEDURE: US Non-OB pelvis comp/trans. TECHNIQUE: Multiple realtime grayscale images were obtained of the pelvis in various projections endovaginally. Transabdominal imaging was also performed. INDICATION: Left pelvic pain. FINDINGS: Uterus measures 8.9 x 5.5 x 4.9 cm. Endometrium is 9 mm in thickness. No myometrial mass is detected. Right ovary measures 2.8 x 2.0 x 2.0 cm, and the left ovary measures 6.7 x 4.0 x 4.8 cm. There is a complex cystic mass involving the left ovary measuring 4.4 x 3.8 x 4.2 cm. This most likely represents a hemorrhagic cyst. A small amount of free fluid in the cul-de-sac is noted. There is blood flow to the ovaries. IMPRESSION: 4.4 cm probable hemorrhagic cyst involving the left ovary. No other significant abnormality is seen. Follow-up to confirm clearing could be performed. Dictated by: Dictated on workstation # [id number]
== END 2019-08-14 14:55 | disposition home or self-care (01) ==
LOC: EDUNIT# 12:42 → ER 12:44
DX: N39.0 Urinary tract infection, site not specified (principal); N83.202 Unspecified ovarian cyst, left side; J45.909 Unspecified asthma, uncomplicated; I10 Essential (primary) hypertension; F41.9 Anxiety disorder, unspecified; F32.9 Major depressive disorder, single episode, unspecified; Z82.49 Family history of ischemic heart disease and other diseases of the circulatory system; Z98.51 Tubal ligation status; Z88.5 Allergy status to narcotic agent; Z88.0 Allergy status to penicillin; Z88.8 Allergy status to other drugs, medicaments and biological substances; Z90.89 Acquired absence of other organs
CPT/HCPCS: 36415; 76830; 76856; 80053; 81000; 84703; 85025; 87077; 87088; 87186; 96361; 96374; 96375

== ENCOUNTER 2019-11-16 11:34 | Emergency (ER) | payer MEDICAID ==
[~2019-11-16] VITALS: Ht 152 cm; Wt 84.0 kg
[~2019-11-16 11:34] MED LIST changes: +ACHD5005 PO; +CEFU500T63 PO
[2019-11-16 12:30] LABS: BASOPHILS % (AUTO) 0 % (0-10); EOSINOPHILS # (AUTO) 0.4 10^3/uL (0.0-0.3); EOSINOPHILS % (AUTO) 3 % (0-10); HEMATOCRIT 41 % (35-52); HEMOGLOBIN 13.8 G/DL (11.5-16.0); LYMPHOCYTES # (AUTO) 3.6 X 10^3 (1.0-4.0); LYMPHOCYTES % (AUTO) 28 % (12-44); MEAN CORPUSCULAR HEMOGLOBIN 28 PG (25-34); MEAN CORPUSCULAR HGB CONC 34 G/DL (32-36); MEAN CORPUSCULAR VOLUME 82 FL (80-99); MEAN PLATELET VOLUME 11.8 FL (7.4-10.4); MONOCYTES # (AUTO) 0.8 X 10^3 (0.0-1.0); MONOCYTES % (AUTO) 6 % (0-12); NEUTROPHILS # (AUTO) 8.2 X 10^3 (1.8-7.8); NEUTROPHILS % (AUTO) 63 % (42-75); PLATELET COUNT 334 10^3/uL (130-400); RED CELL DISTRIBUTION WIDTH 16.7 % (10.0-14.5); WHITE BLOOD COUNT 13.1 10^3/uL (4.3-11.0)
[2019-11-16] MEDS ORDERED: KETOROLAC 60 MG/2 ML VIAL IM STA (12:43)
[2019-11-16] MEDS ORDERED: NS IV 1000 ML 1,000 ML IV ONE ×2 (12:43→14:37)
[2019-11-16] MEDS ORDERED: ORPHENADRINE 60 MG/2 ML (NORFLEX) AMP IV STA (12:43)
[2019-11-16] MEDS ORDERED: ONDANSETRON 4 MG/2 ML (SDV) Z0FRAN IVP ONE (12:45)
--- NOTE | 2019-11-16 12:52 | ED Headache ---
General Chief Complaint: Neurological Problems Stated Complaint: DIZZINESS/HEAD PAIN Nursing Triage Note: PT PRESENTS TO ED FROM HOME WITH COMPLAINTS OF BRAIN ANEURYSM 1 YEAR AGO THAT THEY ARE MONITORING. PT REPORTS FOR THE PAST 6 MONTHS SHE HAS HAD SEIZURE LIKE ACTIVITY THAT SHE HAS FOLLOWED UP WITH WITH HER DR BUT REPORTS "SHE DOESNT KNOW WHAT THEY ARE OR IF THEY ARE RELATED TO THE ANEURYSM." PT REPORTS SHE HAD TWO EPISODES YESTERDAY AND 3 TODAY. REPORTS MUSLCE PAIN DURRING AND FEELING OF WEAKNESS AFTER. Nursing Sepsis Screen: No Definite Risk Source: patient Exam Limitations: no limitations History of Present Illness Date Seen by Provider: Nov 16, 2019 Time Seen by Provider: 12:20 Initial Comments 39-year-old female patient presents with complaints of headache, nausea, light sensitivity beginning this AM. Patient states she is scheduled to see her neurologist, Dr. Contreras, in [place] for neurology in December for seizure like activity that began 6 months ago and a brain aneurysm that was diagnosed 1 year ago. She was previously seeing a neurologist at , but was not able to make the drive to [place] every month. Patient reports 2 episodes yesterday and 3 episodes today of "her limbs shaking", headache, and nausea. Patient states she is cognitively able to understand everyone in no what is going on around her, but is not able to answer. States when she tries to speak during the episodes reports are jumbled. Patient denies taking any occasions at home. Timing/Duration: constant, other (see history of present illness) Severity/Quality: pressure, sharp, throbbing Location: global Prior Headaches/Recent Trauma: frequent headaches Modifying Factors: worse with exposure to light Associated Symptoms: No confusion, No fatigue; facial pain (forehead); No fever/chills, No flushing, No nasal congestion, No nasal drainage, No numbness in legs/feet; seizures (seizure-like activity); No sinus infection, No stiff neck, No vision changes, No weakness Allergies and Home Medications Allergies Coded Allergies: tramadol (Verified Allergy, Intermediate, RASH, 10/18/15) Penicillins (Unverified Allergy, Unknown, 06/22/14) as a child, pt. verbalizes she can take Z-Curly, etc Procaine HCl (Unverified Allergy, Unknown, 06/22/14) codeine (Unverified Allergy, Unknown, 10/18/15) HAD CHILD Home Medications Albuterol Sulfate 1 Puff Puff, 2 PUFF INH Q4H PRN for SHORTNESS OF BREATH, (Reported) Budesonide/Formoterol Fumarate 10.2 Gm Hfa.aer.ad, 2 PUFF INH BID PRN for WHEEZING, (Reported) Cefuroxime Axetil 500 Mg Tablet, 500 MG PO BID Prescribed by: SUYAPA MOHAN on 08/14/19 1322 Duloxetine HCl 60 Mg Capsule.dr, 120 MG PO DAILY, (Reported) TAKES 2 (60MG) CAPSULES Hydrocodone Bit/Acetaminophen 1 Tab Tab, 1 EACH PO Q4-6HR PRN for PAIN-MODERATE Prescribed by: SUYAPA MOHAN on 08/14/19 1444 Patient Home Medication List Home Medication List Reviewed: Yes Review of Systems Review of Systems Constitutional: No chills, No diaphoresis; dizziness; No fever, No malaise Eyes: Denies Blindness, Denies Blurred Vision, Denies Foreign Body Sensation, Denies Pain; Photophobia; Denies Tunnel Vision, Denies Vision Changes Ears, Nose, Mouth, Throat: denies ear pain, denies ear discharge, denies nose pain, denies nose discharge, denies mouth pain, denies loose teeth, denies throat pain Respiratory: No cough, No phlegm, No short of breath, No stridor, No wheezing Cardiovascular: chest pain (chest pressure); No edema, No palpitations, No syncope Gastrointestinal: No abdominal pain, No constipation, No diarrhea; nausea; No vomiting Genitourinary: no symptoms reported Musculoskeletal: no symptoms reported Skin: no symptoms reported Psychiatric/Neurological: Headache; Denies Numbness, Denies Paresthesia; Seizure (seizure-like activity); Denies Tingling, Denies Weakness All Other Systems Reviewed Negative Unless Noted: Yes (Negative excepted noted.) Past Ceyfwip-Gmtotc-Uubvgo Hx Past Med/Social Hx: Reviewed Nursing Past Med/Soc Hx Patient Social History Alcohol Use: Denies Use Recreational Drug Use: No Smoking Status: Current Everyday Smoker Type Used: Cigarettes Recent Foreign Travel: No Contact w/Someone Who Travel: No Recent Infectious Disease Expo: No Recent Hopitalizations: No Physical Abuse: No Sexual Abuse: No Mistreated: No Fear: No Immunizations Up To Date Tetanus Booster (TDap): Unknown PED Vaccines UTD: No Date of Pneumonia Vaccine: Jun 01, 2014 Date of Influenza Vaccine: Aug 02, 2018 Seasonal Allergies Seasonal Allergies: No Past Medical History Surgeries: Yes (METAL PLATE RIGHT ARM, D&C) Section, Gallbladder, Orthopedic, Tonsillectomy Respiratory: Yes Asthma Cardiac: Yes Aneurysm, Hypertension, Syncope Neurological: Yes Reproductive Disorders: No 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 Sexually Transmitted Disease: No HIV/AIDS: No Genitourinary: No Gastrointestinal: Yes Gall Bladder Disease Musculoskeletal: No Endocrine: Yes (vitamin D deficiency) HEENT: No Loss of Vision: Bilateral Hearing Impairment: Denies Cancer: No Psychosocial: Yes Anxiety, Depression Integumentary: No Blood Disorders: No Adverse Reaction/Blood Tranf: No Family Medical History Reviewed Nursing Family Hx Cardiovascular disease MATERNAL GRANDMOTHER PATERNAL GRANDMOTHER Diabetes mellitus MATERNAL GRANDMOTHER FH: cancer MATERNAL GRANDMOTHER Hypertension MATERNAL GRANDMOTHER MATERNAL GRANDFATHER PATERNAL GRANDMOTHER PATERNAL GRANDFATHER No Pertinent Family Hx Physical Exam Vital Signs Vital Signs - First Documented 11/16/19 12:27 Temp 36.5 Pulse 114 Resp 20 B/P (MAP) 166/138 (147) Pulse Ox 98 Capillary Refill : Less Than 3 Seconds Height, Weight, BMI Height: 5'0" Weight: 180lbs. 0.0oz. 81.292752bw; 36.00 BMI Method:Stated General Appearance: WD/WN, no apparent distress HEENT: PERRL/EOMI, normal ENT inspection, TMs normal, pharynx normal, photophobia Neck: non-tender, full range of motion, supple, normal inspection Cardiovascular: normal peripheral pulses, regular rate, rhythm, no edema, no gallop, no JVD, no murmur Respiratory: lungs clear, normal breath sounds, no respiratory distress, no accessory muscle use Gastrointestinal: normal bowel sounds, non tender, soft, no organomegaly; No distended Back: normal inspection Extremities: no pedal edema, no calf tenderness, normal capillary refill Psychiatric: alert, oriented x 3 Crainal Nerves: normal hearing, normal speech, PERRL Coordination/Gait: normal finger to nose, normal gait, negative Romberg's sign Motor/Sensory: no motor deficit, no sensory deficit, no pronator drift Skin: normal color, warm/dry, tattoos/piercings Progress/Results/Core Measures Results/Orders Lab Results Laboratory Tests Test 11/16/19 12:21 11/16/19 13:08 Range/Units White Blood Count 13.1 H 4.3-11.0 10^3/uL Red Blood Count 4.98 4.35-5.85 10^6/uL Hemoglobin 13.8 11.5-16.0 G/DL Hematocrit 41 35-52 % Mean Corpuscular Volume 82 80-99 FL Mean Corpuscular Hemoglobin 28 25-34 PG Mean Corpuscular Hemoglobin Concent 34 32-36 G/DL Red Cell Distribution Width 16.7 H 10.0-14.5 % Platelet Count 334 130-400 10^3/uL Mean Platelet Volume 11.8 H 7.4-10.4 FL Neutrophils (%) (Auto) 63 42-75 % Lymphocytes (%) (Auto) 28 12-44 % Monocytes (%) (Auto) 6 0-12 % Eosinophils (%) (Auto) 3 0-10 % Basophils (%) (Auto) 0 0-10 % Neutrophils # (Auto) 8.2 H 1.8-7.8 X 10^3 Lymphocytes # (Auto) 3.6 1.0-4.0 X 10^3 Monocytes # (Auto) 0.8 0.0-1.0 X 10^3 Eosinophils # (Auto) 0.4 H 0.0-0.3 10^3/uL Basophils # (Auto) 0.0 0.0-0.1 10^3/uL Sodium Level 140 135-145 MMOL/L Potassium Level 3.3 L 3.6-5.0 MMOL/L Chloride Level 106 98-107 MMOL/L Carbon Dioxide Level 22 21-32 MMOL/L Anion Gap 12 5-14 MMOL/L Blood Urea Nitrogen 9 7-18 MG/DL Creatinine 0.81 0.60-1.30 MG/DL Estimat Glomerular Filtration Rate > 60 BUN/Creatinine Ratio 11 Glucose Level 86 70-105 MG/DL Calcium Level 9.6 8.5-10.1 MG/DL Corrected Calcium 9.4 8.5-10.1 MG/DL Magnesium Level 1.8 1.6-2.4 MG/DL Total Bilirubin 0.3 0.1-1.0 MG/DL Aspartate Amino Transf (AST/SGOT) 13 5-34 U/L Alanine Aminotransferase (ALT/SGPT) 18 0-55 U/L Alkaline Phosphatase 89 40-136 U/L Troponin I < 0.028 <0.028 NG/ML Total Protein 7.4 6.4-8.2 GM/DL Albumin 4.3 3.2-4.5 GM/DL TSH [place] Testing 1.01 0.35-4.94 UIU/ML Serum Alcohol < 10 <10 MG/DL Urine Color YELLOW Urine Clarity CLEAR Urine pH 6.5 5-9 Urine Specific [place] 1.025 H 1.016-1.022 Urine Protein 1+ H NEGATIVE Urine Glucose (UA) NEGATIVE NEGATIVE Urine Ketones NEGATIVE NEGATIVE Urine Nitrite NEGATIVE NEGATIVE Urine Bilirubin NEGATIVE NEGATIVE Urine Urobilinogen 0.2 < = 1.0 MG/DL Urine Leukocyte Esterase NEGATIVE NEGATIVE Urine RBC (Auto) NEGATIVE NEGATIVE Urine RBC NONE /HPF Urine WBC RARE /HPF Urine Squamous Epithelial Cells 10-25 H /HPF Urine Crystals NONE /LPF Urine Bacteria NEGATIVE /HPF Urine Casts NONE /LPF Urine Mucus MODERATE H /LPF Urine Culture Indicated NO Urine Opiates Screen NEGATIVE NEGATIVE Urine Oxycodone Screen NEGATIVE NEGATIVE Urine Methadone Screen NEGATIVE NEGATIVE Urine Propoxyphene Screen NEGATIVE NEGATIVE Urine Barbiturates Screen NEGATIVE NEGATIVE Ur Tricyclic Antidepressants Screen NEGATIVE NEGATIVE Urine Phencyclidine Screen NEGATIVE NEGATIVE Urine Amphetamines Screen NEGATIVE NEGATIVE Urine Methamphetamines Screen NEGATIVE NEGATIVE Urine Benzodiazepines Screen NEGATIVE NEGATIVE Urine Cocaine Screen NEGATIVE NEGATIVE Urine Cannabinoids Screen NEGATIVE NEGATIVE My Orders Orders - SUNNY CAMPBELL PA Accucheck Stat ONCE (11/16/19 12:10) Ed Iv/Invasive Line Start (11/16/19 12:10) Urine Bedside (11/16/19 12:10) Ekg Tracing (11/16/19 12:10) Chest 1 View, Ap/Pa Only (11/16/19 12:10) Alcohol (11/16/19 12:10) Cbc With Automated Diff (11/16/19 12:10) Comprehensive Metabolic Panel (11/16/19 12:10) Drug Screen Stat (Urine) (11/16/19 12:10) Magnesium (11/16/19 12:10) Thyroid Analyzer (11/16/19 12:10) Troponin I (11/16/19 12:10) Ua Culture If Indicated (11/16/19 12:10) Ct Head Wo (11/16/19 12:31) Ondansetron Injection (Zofran Injectio (11/16/19 12:45) Ketorolac Injection (Toradol Injection) (11/16/19 12:43) Orphenadrine Injection (Norflex Injectio (11/16/19 12:43) Ns Iv 1000 Ml (Sodium Chloride 0.9%) (11/16/19 12:43) Acetaminophen Tablet (Tylenol Tablet) (11/16/19 14:37) Fentanyl Injection (Sublimaze Injection (11/16/19 14:37) Ns Iv 1000 Ml (Sodium Chloride 0.9%) (11/16/19 14:37) Medications Given in ED Current Medications Medications Dose Ordered Sig/Saúl Route Start Time Stop Time Status Last Admin Dose Admin Ondansetron HCl 4 mg ONCE ONCE IVP 11/16/19 12:45 11/16/19 12:46 DC 11/16/19 13:26 4 MG Sodium Chloride 1,000 ml @ 0 mls/hr Q0M ONCE IV 11/16/19 12:43 11/16/19 12:45 DC 11/16/19 13:26 0 MLS/HR Sodium Chloride 1,000 ml @ 0 mls/hr Q0M ONCE IV 11/16/19 14:37 11/16/19 14:39 DC 11/16/19 15:08 0 MLS/HR Vital Signs/I&O 11/16/19 11/16/19 12:27 17:13 Temp 36.5 36.5 Pulse 114 90 Resp 20 20 B/P (MAP) 166/138 (147) 130/105 (147) Pulse Ox 98 98 Blood Pressure Mean: 147 Initial ECG Impression Date: Nov 16, 2019 Initial ECG Impression Time: 12:12 Initial ECG Rate: 106 Initial ECG Rhythm: S.Tach Comment Sinus tachycardia. No STEMI or arrhythmia noted. EKG reviewed with Dr. Martinez Diagnostic Imaging Diagonstic Imaging: CT Plain Films/CT/US/NM/MRI: head Comments Date of Exam:11/16/19 CT HEAD WO PROCEDURE: CT head without contrast. TECHNIQUE: Multiple contiguous axial images were obtained through the brain without the use of intravenous contrast. Auto Exposure Controls were utilized during the CT exam to meet ALARA standards for radiation dose reduction. INDICATION: History of aneurysm. Syncopal episodes. FINDINGS: There are no CT findings of an acute intracranial abnormality. Specifically, there are no findings of intracranial hemorrhage. No subarachnoid hemorrhage is demonstrated. There are no findings of intracranial mass effect or shift. There is no hydrocephalus. There is no abnormal extra-axial fluid collection. Ren and white matter differentiation appears maintained. There is no abnormal low density within the basal ganglia or within the angela. The mastoid air cells appear clear. Paranasal sinuses are clear. Orbital contents demonstrate a nonspecific density which appears to be associated with the left eyelid. This is unchanged from prior exam. Correlate for any surgical history. IMPRESSION: 1. Stable CT appearance of the head. No acute intracranial abnormality is demonstrated. Dictated by: Dictated on workstation # [id number] Reviewed: Reviewed by Me (radiology report reviewed) Diagonstic Imaging: Xray Plain Films/CT/US/NM/MRI: chest Comments Date of Exam:11/16/19 CHEST 1 VIEW, AP/PA ONLY INDICATION: Pain. FINDINGS: Lungs appear clear without infiltrate or evidence of an effusion. There is no pneumothorax. The heart size and mediastinal contours are appropriate and pulmonary vascularity appears normal. No acute osseous abnormality is demonstrated. IMPRESSION: 1. No radiographic evidence of an acute cardiop ulmonary process. Dictated by: Dictated on workstation # [id number] Reviewed: Reviewed by Me (radiology report reviewed by me) Departure Communication (Admissions) Patient seen and evaluated. Patient was given 1 L of normal saline, 60 mg IV Norflex, 4 mg Zofran IV, and Toradol 60 mg IM 1 dose. Patient reported impro vement in symptoms, but complained of her headache being a 4-5/10. Patient was then given 1 g of Tylenol, 50 g of fentanyl and 1 L of normal saline with complete resolution of symptoms. No seizure-like activity or tremors/shaking noted in the emergency department. ED visit uneventful. Plan for discharge to home with follow-up as scheduled with Dr. Contreras and her primary care provider. Patient instructed to return to the emergency department immediately for worsened symptoms or any other concerns. Impression Primary Impression: Migraine Qualified Codes: G43.009 - Migraine without aura, not intractable, without status migrainosus Additional Impression: Volume depletion Disposition: HOME, SELF-CARE Condition: Improved Departure-Patient Inst. Decision time for Depature: 16:44 Referrals: EDGAR SIMON (PCP/Family) Primary Care Physician Patient Instructions: Migraine Headache (DC), Seizures, Adult (DC), Dehy dration, Adult (DC) Add. Discharge Instructions: All discharge instructions reviewed with patient and/or family. Voiced understanding. Continue usual home medications. Tylenol extra strength [id number] as directed for pain. Ibuprofen 800 mg by mouth every 8 hours as needed for pain. Drink plenty of fluids. Alternate water with Krystal or Powerade. Rest. Follow-up with your family practitioner for recheck is now patient this week. Follow-up with Dr. Contreras as scheduled. Return to the emergency department for worsened symptoms or any other concerns. SUNNY CAMPBELL Nov 16, 2019 12:51
[2019-11-16 12:55] LABS: ALANINE AMINOTRANSFERASE 18 U/L (0-55); ALBUMIN 4.3 GM/DL (3.2-4.5); ALKALINE PHOSPHATASE 89 U/L (40-136); BILIRUBIN,TOTAL 0.3 MG/DL (0.1-1.0); BUN/CREATININE RATIO 11; CALCIUM 9.6 MG/DL (8.5-10.1); CARBON DIOXIDE 22 MMOL/L (21-32); CHLORIDE 106 MMOL/L (98-107); CREATININE SERUM 0.81 MG/DL (0.60-1.30); GFR ESTIMATED > 60; GLUCOSE 86 MG/DL (70-105); MAGNESIUM 1.8 MG/DL (1.6-2.4); POTASSIUM 3.3 MMOL/L (3.6-5.0); SODIUM 140 MMOL/L (135-145); TOTAL PROTEIN 7.4 GM/DL (6.4-8.2)
[2019-11-16 13:15] LABS: TSH (THYROID ANALYZER) 1.01 UIU/ML (0.35-4.94)
[2019-11-16 13:24] LABS: BILIRUBIN,URINE NEGATIVE (NEGATIVE); CLARITY,URINE CLEAR; COLOR,URINE YELLOW; GLUCOSE, URINE (UA) NEGATIVE (NEGATIVE); KETONES,URINE NEGATIVE (NEGATIVE); LEUKOCYTE ESTERASE ,URINE NEGATIVE (NEGATIVE); NITRITE,URINE NEGATIVE (NEGATIVE); PH,URINE 6.5 (5-9); PROTEIN,URINE 1+ (NEGATIVE)
[2019-11-16 13:28] LABS: AMPHETAMINE SCREEN, URINE NEGATIVE (NEGATIVE); BARBITURATE SCREEN URINE NEGATIVE (NEGATIVE); BENZODIAZEPINES SCREEN URINE NEGATIVE (NEGATIVE); CANNABINOID SCREEN, URINE NEGATIVE (NEGATIVE); COCAINE SCREEN URINE NEGATIVE (NEGATIVE); METHADONE STAT NEGATIVE (NEGATIVE); METHAMPHETAMINE SCREEN URINE S NEGATIVE (NEGATIVE); OPIATE SCREEN URINE NEGATIVE (NEGATIVE); OXYCODONE STAT NEGATIVE (NEGATIVE); PROPOXYPHENE STAT NEGATIVE (NEGATIVE); TRICYCLIC ANTIDEPRESSANTS SCRE NEGATIVE (NEGATIVE)
--- NOTE | 2019-11-16 13:35 | Diagnostic Imaging Report ---
PROCEDURE: CT head without contrast. TECHNIQUE: Multiple contiguous axial images were obtained through the brain without the use of intravenous contrast. Auto Exposure Controls were utilized during the CT exam to meet ALARA standards for radiation dose reduction. INDICATION: History of aneurysm. Syncopal episodes. FINDINGS: There are no CT findings of an acute intracranial abnormality. Specifically, there are no findings of intracranial hemorrhage. No subarachnoid hemorrhage is demonstrated. There are no findings of intracranial mass effect or shift. There is no hydrocephalus. There is no abnormal extra-axial fluid collection. Ren and white matter differentiation appears maintained. There is no abnormal low density within the basal ganglia or within the angela. The mastoid air cells appear clear. Paranasal sinuses are clear. Orbital contents demonstrate a nonspecific density which appears to be associated with the left eyelid. This is unchanged from prior exam. Correlate for any surgical history. IMPRESSION: 1. Stable CT appearance of the head. No acute intracranial abnormality is demonstrated. Dictated by: Dictated on workstation # [id number]
[2019-11-16 13:46] LABS: BACTERIA,URINE NEGATIVE /HPF; WBC,URINE RARE /HPF
--- NOTE | 2019-11-16 13:55 | Diagnostic Imaging Report ---
INDICATION: Pain. FINDINGS: Lungs appear clear without infiltrate or evidence of an effusion. There is no pneumothorax. The heart size and mediastinal contours are appropriate and pulmonary vascularity appears normal. No acute osseous abnormality is demonstrated. IMPRESSION: 1. No radiographic evidence of an acute cardiopulmonary process. Dictated by: Dictated on workstation # [id number]
[2019-11-16] MEDS ORDERED: fentaNYL INJECTION 100 MCG/2 ML AMP IVP STA (14:37)
[2019-11-16] MEDS ORDERED: ACETAMINOPHEN 500 MG TAB (TYLENOL) PO STA (14:37)
[2019-11-16 17:13] VITALS: BP 130/105
== END 2019-11-16 17:13 | disposition home or self-care (01) ==
LOC: EDUNIT# 11:34 → ER 11:35
DX: G43.909 Migraine, unspecified, not intractable, without status migrainosus (principal); E86.9 Volume depletion, unspecified; J45.909 Unspecified asthma, uncomplicated; F41.9 Anxiety disorder, unspecified; F32.9 Major depressive disorder, single episode, unspecified; F17.210 Nicotine dependence, cigarettes, uncomplicated; Z88.5 Allergy status to narcotic agent; Z88.0 Allergy status to penicillin; Z88.8 Allergy status to other drugs, medicaments and biological substances; Z82.49 Family history of ischemic heart disease and other diseases of the circulatory system
CPT/HCPCS: 36415; 70450; 71045; 80053; 80306; 80320; 81000; 83735; 84443; 84484; 85025; 93005; 96361; 96372; 96374; 96375

== ENCOUNTER 2019-11-28 23:35 | Emergency (ER) | payer MEDICAID ==
[~2019-11-28] VITALS: Ht 152 cm; Wt 84.0 kg
[2019-11-28] MEDS ORDERED: ACETAMINOPHEN 500 MG TAB (TYLENOL) PO PRN (23:45)
--- NOTE | 2019-11-28 23:58 | ED General ---
General Stated Complaint: SYCOPE,COUGH Source of Information: Patient Exam Limitations: No Limitations History of Present Illness Date Seen by Provider: Nov 28, 2019 Time Seen by Provider: 23:39 Initial Comments Here by EMS with report of cough and single episode 2 home. One of those episodes, the most recent one, but is associated with coughing fit. Recently had influenza B and took the medicines. Does have history of asthma. States that she frequently gets pneumonia. She did have to use her albuterol inhaler about 10 times tonight in pretty rapid succession to get her breathing under control. Doing a little better now. States that she coughed up some blood earlier but that is not going on now. He is noted to be somewhat tachycardic and hypertensive. She does have essential hypertension that is quite resistant to control. She states her current medicine regimen is the only one that has really ever worked for her. Denies chest pain, vomiting, diarrhea. EMS noted fever of near 101F. She did take ibuprofen earlier. Timing/Duration: 1 Week, Changing Over Time, Getting Worse Severity: Moderate Associated Systoms: No Chest Pain; Cough, Fever/Chills; No Nausea/Vomiting; Rashida rtness of Air, Syncope, Weakness Allergies and Home Medications Allergies Coded Allergies: tramadol (Verified Allergy, Intermediate, RASH, 10/18/15) Penicillins (Unverified Allergy, Unknown, 06/22/14) as a child, pt. verbalizes she can take Z-Curly, etc Procaine HCl (Unverified Allergy, Unknown, 06/22/14) codeine (Unverified Allergy, Unknown, 10/18/15) HAD CHILD Home Medications Albuterol Sulfate 1 Puff Puff, 2 PUFF INH Q4H PRN for SHORTNESS OF BREATH, (Reported) Budesonide/Formoterol Fumarate 10.2 Gm Hfa.aer.ad, 2 PUFF INH BID PRN for WHEEZING, (Reported) Cefuroxime Axetil 500 Mg Tablet, 500 MG PO BID Prescribed by: SUYAPA MOHAN on 08/14/19 1322 Duloxetine HCl 60 Mg Capsule.dr, 120 MG PO DAILY, (Reported) TAKES 2 (60MG) CAPSULES Hydrocodone Bit/Acetaminophen 1 Tab Tab, 1 EACH PO Q4-6HR PRN for PAIN-MODERATE Prescribed by: SUYAPA MOHAN on 08/14/19 1444 Patient Home Medication List Home Medication List Reviewed: Yes Review of Systems Review of Systems Constitutional: see HPI; No chills; fever, weakness EENTM: no symptoms reported Respiratory: cough, wheezing Cardiovascular: No chest pain, No edema; syncope Gastrointestinal: no symptoms reported Genitourinary: no symptoms reported Musculoskeletal: no symptoms reported Skin: no symptoms reported Psychiatric/Neurological: No Symptoms Reported All Other Systems Reviewed Negative Unless Noted: Yes Past Fklqpeo-Vawmsq-Popymw Hx Past Med/Social Hx: Reviewed Nursing Past Med/Soc Hx Patient Social History Alcohol Use: Denies Use Recreational Drug Use: No Smoking Status: Current Everyday Smoker Type Used: Cigarettes Recent Hopitalizations: No Immunizations Up To Date Tetanus Booster (TDap): Unknown PED Vaccines UTD: No Date of Pneumonia Vaccine: Jun 01, 2014 Date of Influenza Vaccine: Aug 02, 2018 Seasonal Allergies Seasonal Allergies: No Past Medical History Surgeries: Yes (METAL PLATE RIGHT ARM, D&C) Section, Gallbladder, Orthopedic, Tonsillectomy Respiratory: Yes Asthma Cardiac: Yes Aneurysm, Hypertension, Syncope Neurological: Yes Reproductive Disorders: No 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 Sexually Transmitted Disease: No HIV/AIDS: No Genitourinary: No Gastrointestinal: Yes Gall Bladder Disease Musculoskeletal: No Endocrine: Yes (vitamin D deficiency) HEENT: No Loss of Vision: Bilateral Hearing Impairment: Denies Cancer: No Psychosocial: Yes Anxiety, Depression Integumentary: No Blood Disorders: No Adverse Reaction/Blood Tranf: No Family Medical History Reviewed Nursing Family Hx Cardiovascular disease MATERNAL GRANDMOTHER PATERNAL GRANDMOTHER Diabetes mellitus MATERNAL GRANDMOTHER FH: cancer MATERNAL GRANDMOTHER Hypertension MATERNAL GRANDMOTHER MATERNAL GRANDFATHER PATERNAL GRANDMOTHER PATERNAL GRANDFATHER No Pertinent Family Hx Physical Exam-Suspected Sepsis Physical Exam Vital Signs Vital Signs - First Documented 11/29/19 00:10 Pulse Ox 100 Capillary Refill : Height, Weight, BMI Height: 5'0" Weight: 180lbs. 0.0oz. 81.526064ha; 36.00 BMI Method:Stated General Appearance: No Apparent Distress, WD/WN HEENT: PERRL/EOMI, Pharynx Normal Neck: Non Tender, Supple Respiratory: No Accessory Muscle Use, No Respiratory Distress, Expiration, Wheezing Cardiovascular: No Murmur, Tachycardia Gastrointestinal: Non Tender, Soft Back: Normal Inspection, No CVA Tenderness, No Vertebral Tenderness Extremity: Normal Range of Motion, Non Tender Neurologic/Psychiatric: Alert, Oriented x3 Skin: normal color, warm/dry Focused Exam Lactate Level 11/28/19 23:58: Lactic Acid Level 1.33 Lactic Acid Level Laboratory Tests Test 11/28/19 23:58 Lactic Acid Level 1.33 MMOL/L (0.50-2.00) Progress/Results/Core Measures Suspected Sepsis SIRS Temperature: Pulse: Respiratory Rate: Laboratory Tests 11/28/19 23:40: White Blood Count 17.0H Blood Pressure / Mean: 11/28/19 23:58: Lactic Acid Level 1.33 Laboratory Tests 11/28/19 23:40: Creatinine 0.82, INR Comment 1.0, Platelet Count 305, Total Bilirubin 0.2 Results/Orders Lab Results Laboratory Tests Test 11/28/19 23:40 11/28/19 23:48 11/28/19 23:58 Range/Units White Blood Count 17.0 H 4.3-11.0 10^3/uL Red Blood Count 4.54 4.35-5.85 10^6/uL Hemoglobin 12.4 11.5-16.0 G/DL Hematocrit 38 35-52 % Mean Corpuscular Volume 84 80-99 FL Mean Corpuscular Hemoglobin 27 25-34 PG Mean Corpuscular Hemoglobin Concent 32 32-36 G/DL Red Cell Distribution Width 16.8 H 10.0-14.5 % Platelet Count 305 130-400 10^3/uL Mean Platelet Volume 12.6 H 7.4-10.4 FL Neutrophils (%) (Auto) 72 42-75 % Lymphocytes (%) (Auto) 21 12-44 % Monocytes (%) (Auto) 6 0-12 % Eosinophils (%) (Auto) 1 0-10 % Basophils (%) (Auto) 0 0-10 % Neutrophils # (Auto) 12.2 H 1.8-7.8 X 10^3 Lymphocytes # (Auto) 3.5 1.0-4.0 X 10^3 Monocytes # (Auto) 1.0 0.0-1.0 X 10^3 Eosinophils # (Auto) 0.2 0.0-0.3 10^3/uL Basophils # (Auto) 0.0 0.0-0.1 10^3/uL Neutrophils % (Manual) 73 % Lymphocytes % (Manual) 17 % Monocytes % (Manual) 10 % Blood Morphology Comment NORMAL Prothrombin Time 13.7 12.2-14.7 SEC INR Comment 1.0 0.8-1.4 Activated Partial Thromboplast Time 32 24-35 SEC Sodium Level 141 135-145 MMOL/L Potassium Level 3.1 L 3.6-5.0 MMOL/L Chloride Level 109 H 98-107 MMOL/L Carbon Dioxide Level 21 21-32 MMOL/L Anion Gap 11 5-14 MMOL/L Blood Urea Nitrogen 14 7-18 MG/DL Creatinine 0.82 0.60-1.30 MG/DL Estimat Glomerular Filtration Rate > 60 BUN/Creatinine Ratio 17 Glucose Level 110 H 70-105 MG/DL Calcium Level 9.1 8.5-10.1 MG/DL Corrected Calcium 8.9 8.5-10.1 MG/DL Total Bilirubin 0.2 0.1-1.0 MG/DL Aspartate Amino Transf (AST/SGOT) 12 5-34 U/L Alanine Aminotransferase (ALT/SGPT) 15 0-55 U/L Alkaline Phosphatase 82 40-136 U/L Total Protein 7.2 6.4-8.2 GM/DL Albumin 4.3 3.2-4.5 GM/DL Urine Color YELLOW Urine Clarity CLEAR Urine pH 6.5 5-9 Urine Specific Pompey 1.020 1.016-1.022 Urine Protein NEGATIVE NEGATIVE Urine Glucose (UA) NEGATIVE NEGATIVE Urine Ketones NEGATIVE NEGATIVE Urine Nitrite NEGATIVE NEGATIVE Urine Bilirubin NEGATIVE NEGATIVE Urine Urobilinogen 0.2 < = 1.0 MG/DL Urine Leukocyte Esterase NEGATIVE NEGATIVE Urine RBC (Auto) NEGATIVE NEGATIVE Urine RBC 0-2 /HPF Urine WBC 0-2 /HPF Urine Squamous Epithelial Cells 2-5 /HPF Urine Crystals PRESENT H /LPF Urine Amorphous Sediment FEW DINESH URATES H /LPF Urine Bacteria TRACE /HPF Urine Casts NONE /LPF Urine Mucus NEGATIVE /LPF Urine Culture Indicated NO Lactic Acid Level 1.33 0.50-2.00 MMOL/L My Orders Orders - KAYLIE COTTER MD Cbc With Automated Diff (11/28/19 23:45) Comprehensive Metabolic Panel (11/28/19 23:45) Blood Culture (11/28/19 23:45) Sputum Culture (11/28/19 23:45) Urinalysis (11/28/19 23:45) Urine Culture (11/28/19 23:45) Protime With Inr (11/28/19 23:45) Partial Thromboplastin Time (11/28/19 23:45) Acetaminophen Tablet (Tylenol Tablet) (11/28/19 23:45) Vital Signs Adult Sepsis Patie Q15M (11/28/19 23:45) O2 (11/28/19 23:45) Remove Rings In Anticipation O (11/28/19 23:45) Lactic Acid Analyzer (11/28/19 23:45) Influenza A And B Antigens (11/28/19 23:45) Chest 1 View, Ap/Pa Only (11/29/19 00:01) Albuterol/Ipra Inhalation Soln (Duoneb I (11/29/19 00:00) Svn Small Volume Nebulizer (11/28/19 23:59) Manual Differential (11/28/19 23:40) Prednisone Tablet (Deltasone Tablet) (11/29/19 00:45) Medications Given in ED Current Medications Medications Dose Ordered Sig/Saúl Route Start Time Stop Time Status Last Admin Dose Admin Albuterol/ Ipratropium 3 ml ONCE ONCE INH 11/29/19 00:00 11/29/19 00:01 DC 11/29/19 00:09 3 ML Vital Signs/I&O 11/28/19 11/28/19 11/29/19 23:38 23:38 00:10 Temp 36.7 Pulse 120 Resp 20 B/P (MAP) 160/112 (128) Pulse Ox 100 O2 Delivery Room Air Room Air Room Air 11/29/19 00:00 Intake Total 600 ml Balance 600 ml Capillary Refill : Progress Note : Progress Note Seen and evaluated. IV by EMS. Normal saline 1 L bolus initiated by EMS and will be completed. Labs, blood cultures, lactic acid, UA and chest x-ray ordered. Monitor patient. Albuterol neb given. Acetaminophen 1 g by mouth. Monitor patient. 0055: Patient is doing better.. Given Nebulizer for home as well as initiate prednisone 40 mg by mouth and azithromycin 500 mg by mouth. Patient is requiring multiple doses from her metered dose inhaler for albuterol for rescue breathing at home and I believe the patient would benefit significantly from nebulizer treatments. Patient states that she does much better after nebulizer treatment. Home nebulizer should benefit the patient and may prevent admission. Meds and nebulizer continued as outpatient. Albuterol neb Rx go pack given. Discharged home with return precautions. Patient verbalize understanding instructions and agreement with plan. Diagnostic Imaging Diagonstic Imaging: Xray Plain Films/CT/US/NM/MRI: chest Comments No acute findings Departure Impression Primary Impression: Upper respiratory infection Qualified Codes: J06.9 - Acute upper respiratory infection, unspecified Additional Impression: Acute asthma exacerbation Qualified Codes: J45.41 - Moderate persistent asthma with (acute) exacerbation Disposition: HOME, SELF-CARE Condition: Improved Departure-Patient Inst. Decision time for Depature: 01:00 Referrals: EDGAR SIMON (PCP/Family) Primary Care Physician Patient Instructions: Acute Bronchitis, Adult (DC), Asthma, Adult (DC) Add. Discharge Instructions: Take medications as directed. Drink plenty of fluids. Follow-up with your Dr. in a few days for recheck. Use nebulizer treatment every 4 hours as needed for wheezing or shortness of breath. Return for worse pain, fever, vomiting, weakn ess, breathing problems or other concerns as needed. Scripts Prednisone (Prednisone) 20 Mg Tab 40 MG PO DAILY, #10 TAB 0 Refills Prov: KAYLIE COTTER MD 11/29/19 Azithromycin (Azithromycin) 250 Mg Tablet 250 MG PO DAILY, #4 TAB 0 Refills Prov: KAYLIE COTTER MD 11/29/19 Albuterol Sulfate (Albuterol Sulfate) 2.5 Mg/3 Ml Vial.neb 2.5 MG INH Q4H PRN for WHEEZING, #50 EA 1 Refill Prov: KAYLIE COTTER MD 11/29/19 KAYLIE COTTER MD Nov 28, 2019 23:58
[2019-11-29] MEDS ORDERED: RT-ALBUTEROL/IPRATROPIUM 3 ML (DUONEB) VIAL INH ONE
[2019-11-29 00:04] LABS: BASOPHILS % (AUTO) 0 % (0-10); EOSINOPHILS # (AUTO) 0.2 10^3/uL (0.0-0.3); EOSINOPHILS % (AUTO) 1 % (0-10); HEMATOCRIT 38 % (35-52); HEMOGLOBIN 12.4 G/DL (11.5-16.0); LYMPHOCYTES # (AUTO) 3.5 X 10^3 (1.0-4.0); LYMPHOCYTES % (AUTO) 21 % (12-44); MEAN CORPUSCULAR HEMOGLOBIN 27 PG (25-34); MEAN CORPUSCULAR HGB CONC 32 G/DL (32-36); MEAN CORPUSCULAR VOLUME 84 FL (80-99); MEAN PLATELET VOLUME 12.6 FL (7.4-10.4); MONOCYTES % (AUTO) 6 % (0-12); NEUTROPHILS # (AUTO) 12.2 X 10^3 (1.8-7.8); NEUTROPHILS % (AUTO) 72 % (42-75); PLATELET COUNT 305 10^3/uL (130-400); RED CELL DISTRIBUTION WIDTH 16.8 % (10.0-14.5)
[2019-11-29 00:05] LABS: PROTHROMBIN TIME PATIENT 13.7 SEC (12.2-14.7)
[2019-11-29 00:10] LABS: BILIRUBIN,URINE NEGATIVE (NEGATIVE); CLARITY,URINE CLEAR; COLOR,URINE YELLOW; GLUCOSE, URINE (UA) NEGATIVE (NEGATIVE); KETONES,URINE NEGATIVE (NEGATIVE); LEUKOCYTE ESTERASE ,URINE NEGATIVE (NEGATIVE); NITRITE,URINE NEGATIVE (NEGATIVE); PH,URINE 6.5 (5-9); PROTEIN,URINE NEGATIVE (NEGATIVE)
[2019-11-29 00:13] LABS: ALANINE AMINOTRANSFERASE 15 U/L (0-55); ALBUMIN 4.3 GM/DL (3.2-4.5); ALKALINE PHOSPHATASE 82 U/L (40-136); BILIRUBIN,TOTAL 0.2 MG/DL (0.1-1.0); BUN/CREATININE RATIO 17; CALCIUM 9.1 MG/DL (8.5-10.1); CARBON DIOXIDE 21 MMOL/L (21-32); CHLORIDE 109 MMOL/L (98-107); CREATININE SERUM 0.82 MG/DL (0.60-1.30); GFR ESTIMATED > 60; GLUCOSE 110 MG/DL (70-105); POTASSIUM 3.1 MMOL/L (3.6-5.0); SODIUM 141 MMOL/L (135-145); TOTAL PROTEIN 7.2 GM/DL (6.4-8.2)
[2019-11-29 00:40] LABS: AMORPHOUS SEDIMENT,UR FEW AMOR URATES /LPF; BACTERIA,URINE TRACE /HPF; RBC,URINE 0-2 /HPF; WBC,URINE 0-2 /HPF
[2019-11-29] MEDS ORDERED: predniSONE 20 MG TAB PO ONE (00:45)
[2019-11-29 00:46] LABS: LYMPHOCYTES % (MANUAL) 17 %; MONOCYTES % (MANUAL) 10 %; NEUTROPHILS % (MANUAL) 73 %; RBC MORPH NORMAL
[2019-11-29] MEDS ORDERED: AZITHROMYCIN 250 MG TAB (ZITHROMAX) PO STA (00:56)
[2019-11-29] MEDS ORDERED: RX-ALBUTEROL NEB 2.5 MG/3 ML PACK #5 IH STA (00:56)
[2019-11-29] MEDS ORDERED: ALBU2.5V4 INH (01:12)
[2019-11-29] MEDS ORDERED: AZIT250T12 PO (01:12)
[2019-11-29] MEDS ORDERED: PRD20T PO (01:12)
[2019-11-29 01:15] VITALS: BP 152/117
--- NOTE | 2019-11-29 06:39 | Diagnostic Imaging Report ---
INDICATION: Cough and congestion. Comparison made with prior examination 11/16/2019. FINDINGS: The heart size, mediastinal configuration, and pulmonary vascularity are within normal limits. There is no pleural effusion, pneumothorax, or pneumonia. The osseous structures are unremarkable. IMPRESSION: No acute cardiopulmonary abnormality. Dictated by: Dictated on workstation # [id number]
== END 2019-11-29 01:16 | disposition home or self-care (01) ==
LOC: EDUNIT# 23:35 → ER 23:36
DX: J06.9 Acute upper respiratory infection, unspecified (principal); J45.901 Unspecified asthma with (acute) exacerbation; F41.9 Anxiety disorder, unspecified; F32.9 Major depressive disorder, single episode, unspecified; F17.210 Nicotine dependence, cigarettes, uncomplicated; Z88.5 Allergy status to narcotic agent; Z88.0 Allergy status to penicillin; Z88.8 Allergy status to other drugs, medicaments and biological substances; Z82.49 Family history of ischemic heart disease and other diseases of the circulatory system
CPT/HCPCS: 36415; 71045; 80053; 81000; 83605; 85007; 85027; 85610; 85730; 87040; 87088; 87804; 94640

== ENCOUNTER 2019-12-10 19:15 | Emergency (ER) | payer MEDICAID ==
[~2019-12-10] VITALS: Ht 152.4 cm; Wt 84.0 kg
[~2019-12-10 19:15] MED LIST changes: +ALBU2.5V4 INH; +AZIT250T12 PO
[2019-12-10] MEDS ORDERED: ACET/BUTAL/CAFF (FIORICET) TAB PO PRN (19:30)
--- NOTE | 2019-12-10 19:30 | NUR ---
Provider allows pt to adm prescribed 10mg hydralazine d/t htn.
--- NOTE | 2019-12-10 19:36 | ED Headache ---
General Chief Complaint: Head/Cervical Problems Stated Complaint: SHARP PAIN IN HEAD, BLURRED VISION Source: patient Exam Limitations: no limitations History of Present Illness Date Seen by Provider: Dec 10, 2019 Time Seen by Provider: 19:32 Initial Comments To ER with reports of severe left-sided headache, blurred vision in the left eye only. This began earlier today about an hour ago. 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 No previous history of aneurysm rupture. She followed with [facility] neurosurgery. She had a Phases score of 0.7% risk of rupture over 5 years. Timing/Duration: 1-3 hours Severity/Quality: moderate Location: frontal Associated Symptoms: No confusion, No nausea/vomiting, No stiff neck Allergies and Home Medications Allergies Coded Allergies: tramadol (Verified Allergy, Intermediate, RASH, 10/18/15) Penicillins (Unverified Allergy, Unknown, 06/22/14) as a child, pt. verbalizes she can take Z-Curly, etc Procaine HCl (Unverified Allergy, Unknown, 06/22/14) codeine (Unverified Allergy, Unknown, 10/18/15) HAD CHILD Home Medications Albuterol Sulfate 1 Puff Puff, 2 PUFF INH Q4H PRN for SHORTNESS OF BREATH, (Reported) Albuterol Sulfate 2.5 Mg/3 Ml Vial.neb, 2.5 MG INH Q4H PRN for WHEEZING Prescribed by: KAYLIE COTTER on 11/29/19111 Azithromycin 250 Mg Tablet, 250 MG PO DAILY Prescribed by: KAYLIE COTTER on 11/29/19111 Budesonide/Formoterol Fumarate 10.2 Gm Hfa.aer.ad, 2 PUFF INH BID PRN for WHEEZING, (Reported) Cefuroxime Axetil 500 Mg Tablet, 500 MG PO BID Prescribed by: SUYAPA MOHAN on 08/14/19 1322 Duloxetine HCl 60 Mg Capsule.dr, 120 MG PO DAILY, (Reported) TAKES 2 (60MG) CAPSULES Hydrocodone Bit/Acetaminophen 1 Tab Tab, 1 EACH PO Q4-6HR PRN for PAIN-MODERATE Prescribed by: SUYAPA MOHAN on 08/14/19 1444 Prednisone 20 Mg Tab, 40 MG PO DAILY Prescribed by: KAYLIE COTTER on 2/29/20 0112 Patient Home Medication List Home Medication List Reviewed: Yes Review of Systems Review of Systems Constitutional: see HPI Eyes: No Symptoms Reported Ears, Nose, Mouth, Throat: no symptoms reported Respiratory: no symptoms reported Cardiovascular: no symptoms reported Genitourinary: no symptoms reported Musculoskeletal: no symptoms reported Skin: no symptoms reported Psychiatric/Neurological: See HPI, Headache Past Omovehr-Xruqfb-Bmofxa Hx Patient Social History Type Used: Cigarettes Recent Foreign Travel: No Contact w/Someone Who Travel: No Recent Hopitalizations: No Immunizations Up To Date Tetanus Booster (TDap): Unknown PED Vaccines UTD: No Date of Pneumonia Vaccine: Jun 01, 2014 Date of Influenza Vaccine: Aug 02, 2018 Seasonal Allergies Seasonal Allergies: No Past Medical History Surgeries: Yes (METAL PLATE RIGHT ARM, D&C) Section, Gallbladder, Orthopedic, Tonsillectomy Respiratory: Yes Asthma Cardiac: Yes Aneurysm, Hypertension, Syncope Neurological: Yes (BRAIN ANEURYSM) Reproductive Disorders: No 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 Sexually Transmitted Disease: No HIV/AIDS: No Genitourinary: No Gastrointestinal: Yes Gall Bladder Disease Musculoskeletal: No Endocrine: Yes (vitamin D deficiency) HEENT: No Loss of Vision: Bilateral Hearing Impairment: Denies Cancer: No Psychosocial: Yes Anxiety, Depression Integumentary: No Blood Disorders: No Adverse Reaction/Blood Tranf: No Family Medical History Cardiovascular disease MATERNAL GRANDMOTHER PATERNAL GRANDMOTHER Diabetes mellitus MATERNAL GRANDMOTHER FH: cancer MATERNAL GRANDMOTHER Hypertension MATERNAL GRANDMOTHER MATERNAL GRANDFATHER PATERNAL GRANDMOTHER PATERNAL GRANDFATHER No Pertinent Family Hx Physical Exam Vital Signs Vital Signs - First Documented 12/10/19 19:24 Temp 36.7 Pulse 111 Resp 18 B/P (MAP) 176/137 (150) Pulse Ox 96 O2 Delivery Room Air Capillary Refill : Height, Weight, BMI Height: 5'0" Weight: 180lbs. 0.0oz. 81.750464tk; 36.00 BMI Method:Stated General Appearance: WD/WN, no apparent distress HEENT: PERRL/EOMI, normal ENT inspection Neck: non-tender, full range of motion Respiratory: normal breath sounds, no respiratory distress, no accessory muscle use Gastrointestinal: normal bowel sounds, non tender, soft Extremities: normal range of motion, non-tender Psychiatric: alert Crainal Nerves: normal hearing, normal speech, PERRL Skin: normal color, warm/dry Progress/Results/Core Measures Results/Orders My Orders Orders - SUYAPA MOHAN APRN Ct Head Wo (12/10/19 19:18) Butalbital/Apap/Caffeine Tab (Fioricet T (12/10/19 19:30) Ketorolac Injection (Toradol Injection) (12/10/19 20:30) Prochlorperazine Injection (Compazine In (12/10/19 20:30) Diphenhydramine Injection (Benadryl Inje (12/10/19 20:30) Clonidine Tablet (Catapres Tablet) (12/10/19 20:30) Medications Given in ED Current Medications Medications Dose Ordered Sig/Saúl Route Start Time Stop Time Status Last Admin Dose Admin Acetaminophen/ Butalbital/ Caffeine 1 tab Q4H PRN PO 12/10/19 19:30 12/10/19 19:37 1 TAB Clonidine HCl 0.1 mg ONCE ONCE PO 12/10/19 20:30 12/10/19 20:31 DC 12/10/19 20:34 0.1 MG Diphenhydramine HCl 50 mg ONCE ONCE IM 12/10/19 20:30 12/10/19 20:31 DC 12/10/19 20:35 50 MG Ketorolac Tromethamine 60 mg ONCE ONCE IM 12/10/19 20:30 12/10/19 20:31 DC 12/10/19 20:35 60 MG Prochlorperazine Edisylate 10 mg ONCE ONCE IM 12/10/19 20:30 12/10/19 20:31 DC 12/10/19 20:35 10 MG Vital Signs/I&O 12/10/19 19:24 Temp 36.7 Pulse 111 Resp 18 B/P (MAP) 176/137 (150) Pulse Ox 96 O2 Delivery Room Air Departure Communication (Admissions) 1934-blood pressure is 172/127. He has a prescription for hydralazine 10 mg tablets That she can take 4 times a day if needed, last dose was this morning. She has these with her, I'll let her take 1 now. also will be giving Fioricet one tablet by mouth for headache rated 8 out of 10. 2103-headache at 4/10. States that when she goes to [facility] gives her "what is it...its something that starts with a D" she states. Since CT is stable, pain is improving, will DC to home. Impression Primary Impression: Headache Qualified Codes: R51 - Headache Disposition: 01 HOME, SELF-CARE Condition: Stable Departure-Patient Inst. Decision time for Depature: 19:56 Referrals: EDGAR SIMON (PCP/Family) Primary Care Physician Patient Instructions: Headache, Adult (DC) Add. Discharge Instructions: All discharge instructions reviewed with patient and/or family. Voiced understanding. SUYAPA MOHAN APRN Dec 10, 2019 19:36
--- NOTE | 2019-12-10 20:00 | Diagnostic Imaging Report ---
PROCEDURE: CT head without contrast. TECHNIQUE: Multiple contiguous axial images were obtained through the brain without the use of intravenous contrast. Auto Exposure Controls were utilized during the CT exam to meet ALARA standards for radiation dose reduction. INDICATION: Sharp left-sided head pain and history of left-sided aneurysm. COMPARISON STUDY: CT of the head from 11/16/2019. FINDINGS: Noncontrast CT scanning of the head demonstrates no mass effect, midline shift, hemorrhage, or extra-axial fluid collections. Ren-white matter differentiation is normal. Ventricles, cortical sulci, and basilar cisterns are normal. Postoperative changes are again seen in the left eyelid. Mastoid air cells and visualized portions of the paranasal sinuses are clear. IMPRESSION: Stable CT scan of the head. Dictated by: Dictated on workstation # [id number]
[2019-12-10] MEDS ORDERED: cloNIDine 0.1 MG (CATAPRES) TAB PO ONE (20:30)
[2019-12-10] MEDS ORDERED: PROCHLORPERAZINE 10 MG/2ML INJ (COMPAZINE) IM ONE (20:30)
[2019-12-10] MEDS ORDERED: KETOROLAC 60 MG/2 ML VIAL IM ONE (20:30)
[2019-12-10] MEDS ORDERED: diphenhydrAMINE 50 MG/ML INJ (BENADRYL) IM ONE (20:30)
[2019-12-10 21:10] VITALS: BP 161/114
--- OUTSIDE RECORDS SUMMARY | 2019-12-12 22:26 | XMS REPORT ---
Author Author [facility] Organization [facility] Address [address] [address] Care Team Providers Care Inside Sales Administrator Name Role Phone TERESA, [facility] [facility] Allergies No Information Medications No Information Problems The data below is from unstructured sourcesNo Known Problems or Medical conditions. Procedures No Information Immunizations No Information Results The data below is from unstructured sourcesNo Known Relevant Diagnostic Tests, Laboratory Data and/or Discharge Summary. Vital Signs No Information Interventions No Information Plan of Treatment No Information Goals No Information Social History The data below is from unstructured sources History Response Recorde d Date/Time Alcohol Use Occasionally Uses 06/19/13 8:22pm Recreational Drug Use N DENIES 06/19/13 8:22pm Sexually Transmitted Disease N 06/19/13 8:22pm HIV/AIDS N 06/19/13 8:22 pm Functional Status No Information Mental Status No Information Encounters No Information Medical Equipment No Information Payers The data below is from unstructured sources Payer Name Policy Number Subscriber Name Relationship Self Pay Madhavi Diane N 01 Self / Same As Patient Advance Directives Directive Response Recor ded Date Advance Directives N 8:22pm Organ Donor Y 06/19/13 8 :22pm Additional Source Comments This clinical document has been generated using [employer] software that has been certified by the Office of the National Coordinator for Health Information Technology (ONC 15.99.04.3023.Diam.31.00.0.881786) and the National Committee for Job Lithographer (NCQA, as an eMeasure certified technology). FOR RECORDS PERTAINING TO PATIENTS WHO ARE OR HAVE BEEN ENROLLED IN A CHEMICAL D EPENDENCY/SUBSTANCE ABUSE PROGRAM, SOME INFORMATION MAY BE OMITTED. This clinica l summary was aggregated from multiple sources. Caution should be exercised in using it in the provision of clinical care. This summary normalizes information from multiple sources, and as a consequence, information in this document may ma terially change the coding, format and clinical context of patient data. In lina tion, data may be omitted in some cases. CLINICAL DECISIONS SHOULD BE BASED ON T HE PRIMARY CLINICAL RECORDS. [facility]. provides no warranty or guara ntee of the accuracy or completeness of information in this document.The followi ng information is based on time limited clinical information
== END 2019-12-10 21:10 | disposition home or self-care (01) ==
LOC: EDUNIT# 19:15 → ER 19:17
DX: R51 Headache (principal); J45.909 Unspecified asthma, uncomplicated; I10 Essential (primary) hypertension; F41.9 Anxiety disorder, unspecified; F32.9 Major depressive disorder, single episode, unspecified; Z98.51 Tubal ligation status; Z88.5 Allergy status to narcotic agent; Z88.0 Allergy status to penicillin; Z88.8 Allergy status to other drugs, medicaments and biological substances; Z82.49 Family history of ischemic heart disease and other diseases of the circulatory system
CPT/HCPCS: 70450